=== PATIENT | female | born 1990 | race African-American/Black ===

== ENCOUNTER 2020-02-15 10:21 | Outpatient (CLI) | payer OTHER, SELFPAY ==
--- NOTE | ~2020-02-15 | US_ITS ---
EXAMINATION: US OB <= 14 weeks fetus DATE: 02/15/2020 11:12 INDICATION: First trimester dating, encounter for supervision of normal TECHNIQUE: Real-time pelvic transabdominal and transvaginal ultrasound was performed. COMPARISON: None. FINDINGS: The uterus measures 10.9 x 9.6 x 8.1 cm. There is an intrauterine gestational sac. A yolk sac is identified. heart motion is identified measuring 163 beats per minute (bpm) by M-mode Do ppler. The crown rump length measures 3.6 cm , which correlates with an estimated gestational a ge of 10 weeks and 4 day(s) (+/-) 7 day(s). The right ovary measures 3.3 x 2.2 x 2.5 cm. The left ovary measures 2.9 x 2.0 x 1.5 cm. There is nor mal vascular flow in the ovaries. There is no free fluid in the pelvis. IMPRESSION: 1. Live intrauterine with an estimated gestational age of 10 weeks and 4 day(s) (+/-) 7 day (s) and an estimated delivery date of 09/08/20. Reviewed, dictated and finalized at location B. IMPRESSION: 1. Live intrauterine with an estimated gestational age of 10 weeks an d 4 day(s) (+/-) 7 day(s) and an estimated delivery date of 09/08/20.
== END 2020-02-15 10:22 | disposition home or self-care (01) ==
PROVIDERS: PCP Thoracic Surgery (Cardiothoracic Vascular Surgery); Visit Provider Physician Assistant
DX: Z34.90 Encounter for supervision of normal pregnancy, unspecified, unspecified trimester (principal)
CPT/HCPCS: 76801

== ENCOUNTER 2020-06-26 13:59 | Outpatient (CLI) | payer OTHER, SELFPAY ==
--- NOTE | ~2020-06-26 | US_ITS ---
EXAMINATION: US OB follow up DATE: 06/26/2020 14:54 INDICATION: Routine care during third trimester TECHNIQUE: Real-time ultrasound of the pelvis was performed. The interpreting radiologist was not pre sent for the study. COMPARISON: 02/15/2020 FINDINGS: There is a single living fetus in vertex presentation. The placenta is anterior. card iac activity and movement are noted. heart rate is 149 beats per minute (bpm). The amniot ic fluid index is subjectively normal. The following biometric data were obtained: Biparietal diameter (BPD): 7.3 cm; head circumference (HC): 28.3 cm; abdominal circumference (AC): 24 .1 cm; femur length (FL): 5.6 cm. These measurements are concordant. Estimated weight is 1346 g +/- 201 g, which correlates with the 43rd percentile when 09/11/2020 is used as estimated date of delivery. As single measurements, these parameters are each equal to the following estimated gestational ages w ith ranges of +/- 2 standard deviations: BPD: 29 weeks 4 days +/- 2 weeks 1 days. HC: 31 weeks 1 days +/- 3 weeks 0 days. AC: 28 weeks 3 days +/- 2 weeks 1 days. FL: 29 weeks 4 days +/- 2 weeks 1 days. estimated gestational age based solely on measurements from this exam is 29 weeks 5 days +/- 2 weeks 1 days. IMPRESSION: 1. Single living fetus in vertex presentation. 2. Estimated weight is 1346 g +/- 201 g, which correlates with the 43rd percentile when 09/11/19 21 is used as estimated date of delivery. Reviewed, dictated and finalized at location A. C WINFOR[employer] DEVELOPER IMPRESSION: 1. Single living fetus in vertex presentation. 2. Estimated weight is 1346 g +/- 201 g, which correlates with the 43rd p ercentile when 09/11/2020 is used as estimated date of delivery.
== END 2020-06-26 14:00 | disposition home or self-care (01) ==
LOC: ANHIMG 14:04
PROVIDERS: PCP Thoracic Surgery (Cardiothoracic Vascular Surgery); Visit Provider Physician Assistant
DX: Z34.93 Encounter for supervision of normal pregnancy, unspecified, third trimester (principal); Z3A.29 29 weeks gestation of pregnancy
CPT/HCPCS: 76816

== ENCOUNTER 2020-08-03 16:00 | Observation (INO) | payer OTHER, SELFPAY ==
[2020-08-03] VITALS (12 sets, daily range): BP systolic 95–125; BP diastolic 38–71; PULSE 79–123
[2020-08-03] MEDS: TERBUTALINE SULFATE 1 MG/ML VIAL 0.25 MG SUB-Q (17:42)
--- NOTE | 2020-08-10 17:12 | PM.OBTRLD ---
OB - Triage/Final Diagnosis Visit Information Reason for evaluation: threatened labor
== END 2020-08-03 19:45 | disposition home or self-care (01) ==
PROVIDERS: Admitting Provider Obstetrics & Gynecology; PCP Thoracic Surgery (Cardiothoracic Vascular Surgery); Visit Provider Obstetrics & Gynecology
DX: O47.03 False labor before 37 completed weeks of gestation, third trimester (principal); Z3A.34 34 weeks gestation of pregnancy
CPT/HCPCS: 84112; 96372; G0378; G0379; J3105

== ENCOUNTER 2020-08-31 04:15 | Inpatient (IN) | payer OTHER, SELFPAY ==
[2020-08-31] VITALS (15 sets, daily range): BP systolic 103–143; BP diastolic 57–109; PULSE 67–174; RESP 17–18; TEMP 36.9–37.3; O2SAT 100; BMI 38.5
[2020-08-31] MEDS: AMPICILLIN 2 GM/NS 100 ML 2 GM/100 ML BAG IVPB (04:55)
--- NOTE | 2020-08-31 04:55 | PM.IMHP ---
H&P: HPI History of Present Illness Date/Time: 08/31/20 04:55 Chief Complaint: contractions Narrative: Aria Montaño is a 30 yo @ 38.6wks ([facility] 09/08/20) who presented to L&D in labor; found to be 7cm. She reports movement. No VB or LOF. She has had regular care with Dr. Rey. Her is complicated by: - GBS bacteruria in January 2020 - Occasional marijuana use - Anemia on anemia - Tobacco abuse; 07/23 ppd Review of Systems Constitutional: Constitutional: Denies chills and Denies fever(s) Eyes: Eyes: Denies change in vision Cardiovascular: Cardiovascular: Denies chest pain and Denies rapid heart rate Respiratory: Respiratory: Denies cough and Denies dyspnea Gastrointestinal: Gastrointestinal: Reports abdominal pain, Denies nausea and Denies vomiting Genitourinary: Genitourinary: Denies vaginal discharge Neurologic: Denies headache(s) Psychiatric: Psychiatric: Denies anxiety and Denies depression [facility] Past Medical History Medical History Anxiety Migraines Family History Family History Mother Hypertension Social History Social History Substance use: never Gender identity (if verbalized by the patient): Female Spiritual care concerns: No Meds Home Medications and Allergies Home Medications Medication Instructions Recorded Confirmed Type Vitamin Plus Low Iron 1 tablet DAILY 08/03/20 08/10/20 History aspirin 81 mg DAILY 08/03/20 08/10/20 History calcium carbonate-vitamin D3 1 tablet DAILY 08/03/20 08/10/20 History [Oysco 500/D] folic acid 1 mg DAILY 08/03/20 08/10/20 History multivitamin 1 tablet DAILY 08/03/20 08/10/20 History Allergies Allergy/AdvReac Type Severity Reaction Status Date / Time No Known Allergies Allergy Verified 08/03/20 17:42 Exam Const: General: cooperative, healthy appearing, comfortable and no acute distress Resp: Effort & Inspection: normal respiratory effort and able to speak in complete sentences Cardio: Rate: regular rate GI: GI Palp: Yes Soft to palpation : Other: FHT's: 140's/ mod dev/ + accels/ no decels - cat 1 TOCO: ctx's q5min Membranes: intact Cervix: 80/0 Presentation: cephalic Skin: General skin exam: normal color Neuro: General: patient oriented x3 Extrem: General: normal to inspection Psych: Appearance: grossly normal Affect: normal affect Attitude: cooperative Assessment and Plan Assessment and plan (1) : Qualifiers: Weeks of gestation: 38 weeks Qualified Code(s): Z3A.38 - 38 weeks gestation of Code(s): Z34.90 - Encounter for supervision of normal , unspecified, unspecified trimester Status: Acute (2) Active labor: Status: Acute (3) GBS (group B streptococcus) UTI complicating : Qualifiers: Trimester: first trimester Qualified Code(s): O23.41 - Unspecified infection of urinary tract in , first trimester; B95.1 - Streptococcus, group B, as the cause of diseases classified elsewhere Code(s): O23.40 - Unspecified infection of urinary tract in , unspecified trimester; B95.1 - Streptococcus, group B, as the cause of diseases classified elsewhere Status: Acute Additional Plan - Admit to L&D - Continuous monitoring; currently reassuring - Pt declines epidural - GBS positive; ampicillin started - Anticipate
[2020-08-31 05:07] LABS: Basophils Percent Auto 0.3 % (0.2-1.2); Eosinophils Percent Auto 0.3 % (0-4.4); Hematocrit 33.7 % (37.0-47.0); Immature Granulocyte Absolute 0.04 K/mm3 (0.00-0.031); Immature Granulocyte Percent A 0.6 % (0-0.5); Lymphocytes Percent Auto 20.1 % (18.3-44.2); Mean Corpuscular HGB Conc 32.6 g/dl (32-36); Mean Corpuscular Hemoglobin 27.6 pg (26-34); Mean Corpuscular Volume 84.7 fl (80-100); Mean Platelet Volume 10.4 fl (7.4-10.4); Monocytes Absolute Auto 0.7 K/mm3 (0.1-0.6); Monocytes Percent Auto 9.6 % (2.6-8.5); Neutrophils Absolute Auto 4.8 K/mm3 (1.3-6.7); Neutrophils Percent Auto 69.1 % (45.5-73.1); Platelet Count Result 237 k/mm3 (150-375); Red Blood Count 3.98 M/mm3 (4.2-5.4); Red Cell Distribution Width 14.9 % (11.5-14.5)
[2020-08-31] MEDS: OXYTOCIN 30 UNITS/NS 500 ML 30 UNITS/500 ML BAG 999 UNITS IV CONT (05:30)
--- NOTE | 2020-08-31 05:49 | WPDHPUPDATE1 ---
History and Physical Update Update Date/Time: 08/31/20 05:49 History and Physical has been reviewed, including an updated exam of the patient. There are NO changes in the patient's condition. Risks, benefits, and alternatives have been discussed and questions answered. Patient agrees to proceed with procedure.
--- NOTE | 2020-08-31 05:52 | PM.OBPRVD ---
OB - Delivery Note Procedure Delivery date: 08/31/20 Intrapartal events: Precipitous Labor < 3 hours Induction method: none Delivery augmentation: rupture of membranes Delivery monitor: external FHT and external uterine Route of delivery: Laceration Description: Perineal - 2nd Degree Delivery repair: vicryl Specimen: No Quantitative Blood Loss (ml): 250 Anesthesia type: Local Disposition: floor Narrative: Patient had strong desire to push and was found to be anterior lip. Amniotic sac was broken, clear fluid was noted. With the next two contractions and good maternal effort, she delivered the head over intact perineum. No nuchal was palpated. With the next push she easily delivered the shoulders and body, compound presentation with left hand up by neck. The infant had spontaneous cry and was immediately placed skin to skin. Delayed cord clamping was performed. The cord was then clamped and cut. A segment of the cord was collected for cord gases. The remaining cord blood was collected for typing. With gentle downward traction, the placenta delivered without issue. Pitocin was then started. Minimal bleeding was noted. The cervix, vagina, and perineum were examined and a 2nd degree perineal laceration was noted. Lidocaine was used for local anesthesia and the laceration was repaired using 2-0 Vicryl in the normal fashion. Slight bleeding was noted (cervix was present at the introitus) and the uterus was attempted to be reduced. Good hemostasis was noted. Sponge, lap, needle and instrument counts were correct at the end of the procedure. Patient and baby were bonding. Her bleeding was examined and noted to be heavier than normal with small clots. A bimanual massage was performed and a 2 inch piece of placenta was removed with clots. Good uterine tone and decreased bleeding were then noted. Cytotec 800mcg was placed rectally. Her bleeding will be closely monitored. QBL 271cc. [place] Baby Date of : 08/31/20 Time of : 05:26 Weeks of gestation at delivery: 38 gender: Male Weight (pounds): 7 Weight (ounces): 10 presentation: vertex position: Left Occiput Anterior Placenta delivery description: Expressed cord vessel description: 3 Vessels score one minute: 9 score five minutes: 9
[2020-08-31] MEDS: fentaNYL CITRATE INJ (*CRX) 100 MCG/2 ML VIAL IV PUSH (06:02)
[2020-08-31] MEDS: OXYTOCIN 30 UNITS/NS 500 ML 30 UNITS/500 ML BAG 125 UNITS IV CONT (06:03)
[2020-08-31] MEDS: miSOPROStol 200 MCG TABLET 1000 MCG (06:05)
--- NOTE | 2020-08-31 06:40 | LDADM ---
This patient, Aria Montaño, was admitted to Labor/Delivery/Recovery 103 on 08/31/20 at 04:15. Plans for labor, pain management and were discussed with patient. Patient/family oriented to hospital policies and general routines including ID bracelet, bed and alarms, visiting hours, pain management, procedures, bathroom and other care routines, personal items, smoking policy, room service/diet and guest tray routines, infant security routines, and visiting hours. Patient/Family are encouraged to report perceived risks to care and to ask questions if they do not understand what they are told or what they should do. See OBIX for further documentation.
[2020-08-31 07:11] LABS: Rapid Plasma Reagin Non-Reactive (NonReactive)
[2020-08-31] MEDS: ACETAMINOPHEN 325 MG TABLET 650 MG PO (07:19)
[2020-08-31] MEDS: BENZOCAINE 20% AER SPR (*SP) 56 GM CAN 1 SPRAY TOPICAL (07:19)
[2020-08-31] MEDS: WITCH HAZEL 40 PADS 1 PAD TOPICAL (07:19)
[2020-08-31] MEDS: LACTATED RINGERS 1,000 ML 125 ML IV CONT (07:42)
--- NOTE | 2020-08-31 08:26 | OBPPTRN ---
Patient transferred to post room # 290 via wheelchair. Support person present. Oriented to unit, room, information board, rooming in, admission packet and security measures. Patient verbalizes understanding.
--- NOTE | 2020-08-31 10:15 | PC.NURSE ---
Consulted with patient, reviewed feeding cues, frequencies, duration of feedings, feeding elimination flow sheet, and signs of adequate intake. Demonstrated stimulation techniques to wake for feeding. Assisted with to breast. Reviewed positioning/alignment, holding breast and asymmetrical latch on. was rooting and attempting to latch correctly. After 1-2 minutes of latching on and off breast mom states she wants to bottle feed . Encouraged mom to continue to get infant to latch but mom states she wants to pump and feed. Mother voiced understanding of information shared. Mom declined wanting to assist infant to breast for next feeding. Breast pump provided due to mom's choice tp pump and feed. Instructions given on breast pump care and usage, pumping schedule, nipple care, and collection and storage of breast milk. Encouraged [id number], breast massage and manual expression to stimulate supply. Assessed patient for correct flange size, placement and draw. Patient verbalizes and demonstrates understanding of instructions.
[2020-08-31] MEDS: IBUPROFEN 600 MG TABLET PO ×2 (15:42→22:31)
[2020-09-01 06:15] LABS: Hematocrit 29.6 % (37.0-47.0); Hemoglobin 9.8 g/dL (12.0-15.0)
[2020-09-01] MEDS: WITCH HAZEL 40 PADS 1 PAD TOPICAL (07:32)
[2020-09-01] MEDS: BENZOCAINE 20% AER SPR (*SP) 56 GM CAN 1 SPRAY TOPICAL (07:32)
[2020-09-01] MEDS: IBUPROFEN 600 MG TABLET PO ×2 (07:33→16:59)
[2020-09-01] MEDS: MULTIVIT/MIN/PREN/FOL AC/IRON TABLET 1 TAB PO (07:33)
[2020-09-01] MEDS: DOCUSATE SODIUM 100 MG CAPSULE PO ×2 (07:33→16:59)
[2020-09-01] MEDS: POLYSACCHARIDE IRON COMPLEX 150 MG CAPSULE PO ×2 (07:34→16:59)
[2020-09-01 07:43] VITALS: BP 127/75; PULSE 75; RESP 18; TEMP 36.3
--- NOTE | 2020-09-01 08:56 | P.PNOB_ITS ---
OB - PN: Subj Subjective Date/time seen: 09/01/20 08:56 Patient comments: no complaints, pain well controlled, tolerating diet and flatus present [place] baby status: doing well [place] feeding status: breast and bottle feeding OB - PN: Obj Data Labs CBC & Chem 7: 09/01/20 05:56 Labs: Laboratory Results - last 24 hr 09/01/20 05:56 Hgb 9.8 L Hct 29.6 L OB - PN A/P Assessment and Plan (1) Term delivered: Code(s): O80 - Encounter for full-term uncomplicated delivery Status: Acute (2) GBS (group B streptococcus) UTI complicating : Qualifiers: Trimester: first trimester Qualified Code(s): O23.41 - Unspecified infection of urinary tract in , first trimester; B95.1 - Streptococcus, group B, as the cause of diseases classified elsewhere Code(s): O23.40 - Unspecified infection of urinary tract in , unspecified trimester; B95.1 - Streptococcus, group B, as the cause of diseases classified elsewhere Status: Acute Plan day: 1 Plan: routine care, discharge home and follow up 6 weeks Time Spent With Patient Time: Total time spent is greater than 50% in coordination of care (as documented) at patient's floor/unit and/or counseling patient: Time with patient: less than 15 minutes Review of Systems Review of Systems: All systems reviewed & are unremarkable except as noted in HPI and below Exam Const: General: cooperative, healthy appearing, comfortable, no acute distress, well developed, alert, awake and Physically active HENMT: Head: normal to inspection Eyes: General: appearance normal, both eyes and all related structures Neck: Neck: normal visual inspection Chest: Chest palpation & inspection: normal inspection of the chest Resp: Effort & Inspection: normal respiratory effort Cardio: Rate: regular rate Rhythm: regular rhythm GI: Inspection: normal to inspection : External Female Exam: normal external appearance Back/Spine/Pelvis: Back: no CVA tenderness Skin: General skin exam: normal color Neuro: General: patient oriented x3, gait normal, tone normal, moves all extr emities and Normal light touch and pain sensation Extrem: General: normal to inspection, full ROM and no calf tenderness Psych: Appearance: grossly normal Mental Status: mental status grossly normal Speech and movement: Normal speech and movement present Affect: normal affect Attitude: cooperative Thought process: Normal thought process present Thought content: Yes Normal thought content present Insight: Good insight present (Psych) Judgement: Good judgement present (Psych)
--- NOTE | 2020-09-01 09:00 | PM.OBDSVD ---
DS: Admitting Diagnosis Admitting Diagnosis Admitting Diagnosis: Term Spontaneous onset of labor GBS carrier DS: Discharge Diagnosis Discharge Diagnosis (1) Term delivered: Code(s): O80 - Encounter for full-term uncomplicated delivery Status: Acute (2) GBS (group B streptococcus) UTI complicating : Qualifiers: Trimester: first trimester Qualified Code(s): O23.41 - Unspecified infection of urinary tract in , first trimester; B95.1 - Streptococcus, group B, as the cause of diseases classified elsewhere Code(s): O23.40 - Unspecified infection of urinary tract in , unspecified trimester; B95.1 - Streptococcus, group B, as the cause of diseases classified elsewhere Status: Acute OB - DS: Summary Hospital Course Time spent discussing smoking cessation with patient: 3 to 10 minutes OB Procedures : Ultrasound OB Procedures Intrapartum: Spontaneous Vag Delivery OB Procedures: : None Peripartum Data Infant Delivery Method: Natural Vaginal Laceration Description: Perineal - 1st Degree complications: none [place] 1: Gender: Male Disposition of : home Status at Discharge Functional status at discharge: independent ambulation Overall status at discharge: patient is back to baseline Time Spent with Patient Time attestation: Total time spent providing and/or coordinating discharge services: Time spent: Less than 30 minutes Exam Const: General: cooperative, healthy appearing, comfortable, no acute distress, well developed, alert, awake and Physically active Nutritional Appearance: average body habitus and well nourished Orientation/consciousness: oriented to person Limitations: no limitations HENMT: Head: normal to inspection Eyes: General: appearance normal, both eyes and all related structures Neck: Neck: normal visual inspection Chest: Chest palpation & inspection: normal inspection of the chest Resp: Effort & Inspection: normal respiratory effort Cardio: Rate: regular rate Rhythm: regular rhythm GI: Inspection: normal to inspection : External Female Exam: normal external appearance Back/Spine/Pelvis: Back: no CVA tenderness Skin: General skin exam: normal color Neuro: General: patient oriented x3, gait normal, tone normal, moves all extremities and Normal light touch and pain sensation Extrem: General: normal to inspection, full ROM and no calf tenderness Psych: Appearance: grossly normal Mental Status: mental status grossly normal Speech and movement: Normal speech and movement present Affect: normal affect Attitude: cooperative Thought process: Normal thought process present Thought content: Yes Normal thought content present Insight: Good insight present (Psych) Judgement: Good judgement present (Psych) DS: Data Data Completed and Pending Pending studies at discharge: Pending at discharge 08/31/20 05:30 Surgical [PTH] Routine Labs on day of discharge: Labs from last 24 hours 09/01/20 05:56 Hgb 9.8 L Hct 29.6 L Discharge Plan Discharge Attending physician on discharge: Rony Rey Discharging Clinician: Rony Rey Anticipated Discharge Date/Time: 09/02/20 08:58 Patient Disposition: Home, Self-Care Activity: may shower, unlimited and may drive after 2 weeks Diet: as tolerated and regular Wound Care Instructions: follow printed instructions Discharge Instructions: Routine Patient Instructions: Antibiotic Form Stand Alone Forms: General Discharge Information Follow-up/Referrals: Rony Rey MD [Physician] - 3 Weeks Discharge Medications: New ibuprofen 600 mg Tablet 600 mg PO Q6H Qty: 90 RF: 2 Continued multivitamin Tablet 1 tablet DAILY RF: 0 aspirin 81 mg tablet,delayed release (DR/EC) 81 mg DAILY RF: 0 folic acid 1 mg tablet 1 mg DAILY RF: 0 calcium c
--- NOTE | 2020-09-01 16:00 | PC.NURSE ---
Patient was given the opportunity to view the discharge video Mother & Baby Care, The First Two Weeks and to ask questions. Patient declined viewing the video and has been given the mother/baby guide for home reference.
[2020-09-01 19:15] VITALS: BP 131/80; PULSE 85; RESP 17; TEMP 36.8
[2020-09-02] MEDS: IBUPROFEN 600 MG TABLET PO ×2 (01:26→08:10)
[2020-09-02 08:00] VITALS: BP 129/79; PULSE 82; RESP 16; TEMP 36.5
[2020-09-02] MEDS: POLYSACCHARIDE IRON COMPLEX 150 MG CAPSULE PO (08:10)
[2020-09-02] MEDS: DOCUSATE SODIUM 100 MG CAPSULE PO (08:10)
[2020-09-02] MEDS: WITCH HAZEL 40 PADS 1 PAD TOPICAL (08:10)
[2020-09-02] MEDS: BENZOCAINE 20% AER SPR (*SP) 56 GM CAN 1 SPRAY TOPICAL (08:10)
[2020-09-02] MEDS: MULTIVIT/MIN/PREN/FOL AC/IRON TABLET 1 TAB PO (08:10)
[2020-09-02] MEDS: TETANUS,DIPHTHERIA,AC PERTUSSIS ADULT (0.5 ML) BOOSTRIX IM (10:10)
--- NOTE | 2020-09-02 11:47 | PC.NURSE ---
Infant care and self care discharge instructions given including follow up visit date and time. Pt. verbalized understanding. No questions or concerns voiced. Very pleasant and cooperative. FOB at side.
== END 2020-09-02 10:35 | disposition home or self-care (01) | DRG 560 ==
LOC: ANHLDR 04:42 → ANHOB2 08:30
PROVIDERS: Admitting Provider Obstetrics & Gynecology; PCP Thoracic Surgery (Cardiothoracic Vascular Surgery); Visit Provider Obstetrics & Gynecology
DX: O99.824 Streptococcus B carrier state complicating childbirth (principal); O62.3 Precipitate labor; O76 Abnormality in fetal heart rate and rhythm complicating labor and delivery; O70.1 Second degree perineal laceration during delivery; O32.6XX0 Maternal care for compound presentation, not applicable or unspecified; Z3A.38 38 weeks gestation of pregnancy; Z37.0 Single live birth; Z23 Encounter for immunization
CPT/HCPCS: 36415; 85014; 85018; 85025; 86592; 86850; 86900; 86901; 88307; 90471; 90653; 90715; A9270; G0008; J0290; J2590; J3010; J7120

== ENCOUNTER 2023-07-14 09:47 | Emergency (ER) | payer OTHER, SELFPAY ==
[2023-07-14 10:28] VITALS: BP 127/74; PULSE 75; RESP 16; TEMP 36.6; O2SAT 100
== END 2023-07-14 13:20 | disposition left against medical advice (07) ==
LOC: ANHED 13:17
PROVIDERS: PCP Thoracic Surgery (Cardiothoracic Vascular Surgery)
DX: Z53.21 Procedure and treatment not carried out due to patient leaving prior to being seen by health care provider (principal)
CPT/HCPCS: 99199

== ENCOUNTER 2023-07-15 19:05 | Emergency (ER) | payer OTHER, SELFPAY ==
--- NOTE | ~2023-07-15 | US_ITS ---
EXAMINATION: US pelvic complete w TV DATE: 07/15/2023 21:17 INDICATION: preg, bleeding, LLQ pain TECHNIQUE: Multiple transabdominal and endovaginal sonographic images of the pelvis were obtained. COMPARISON: None. FINDINGS: Uterus: 8.6 x 4.6 x 4.9 cm. Endometrial complex measures 7 mm. Right Ovary: 4.0 x 1.8 x 2.2 cm. Vascular flow is present. There is minimal free fluid in the right a dnexa. Left Ovary: 5.2 x 1.4 x 2.2 cm. Vascular flow is present. 2.1 cm simple paraovarian cyst. 2.3 cm mini june complicated cystic ovarian structure, with thin dependent reticulations and minimal internal ec hogenicity. There is small volume free fluid in the pelvis. IMPRESSION: No intrauterine gestational sac visualized. Findings represent of unknown location. Diffe rential diagnosis includes early normal, failed early, or ectopic . Recommend follow-up ser ial beta-hCG values. Ultrasound follow-up should be considered as clinically warranted. Simple right paraovarian cyst. 2.3 cm right ovarian cyst, likely resolving hemorrhagic cyst. [facility] Reviewed, dictated and finalized at location K. DRAFTING MACHINE OPERATOR IMPRESSION: No intrauterine gestational sac visualized. Findings represent of un known location. Differential diagnosis includes early normal, failed early, or ectopic . Recommend follow-up serial beta-hCG values. Ultrasound fo llow-up should be considered as clinically warranted. Simple right paraovarian cyst. 2.3 cm right ovarian cyst, likely resolving hemorrhagic cyst. Recommend attenti on in follow-up examinations.
[2023-07-15 19:31] VITALS: BP 153/80; PULSE 68; RESP 16; TEMP 37.2; O2SAT 100
[2023-07-15 19:51] LABS: Basophils Percent Auto 0.5 % (0.2-1.2); Eosinophils Percent Auto 0.6 % (0-4.4); Hematocrit 38.3 % (37.0-47.0); Hemoglobin 12.2 g/dL (12.0-15.0); Immature Granulocyte Absolute 0.01 K/mm3 (0.00-0.031); Immature Granulocyte Percent A 0.2 % (0-0.5); Lymphocytes Absolute Auto 2.26 K/mm3 (0.9-3.2); Lymphocytes Percent Auto 34.5 % (18.3-44.2); Mean Corpuscular HGB Conc 31.9 g/dl (32-36); Mean Corpuscular Hemoglobin 27.2 pg (26-34); Mean Corpuscular Volume 85.3 fl (80-100); Mean Platelet Volume 9.7 fl (7.4-10.4); Monocytes Absolute Auto 0.6 K/mm3 (0.1-0.6); Monocytes Percent Auto 9.2 % (2.6-8.5); Neutrophils Absolute Auto 3.6 K/mm3 (1.3-6.7); Platelet Count Result 324 k/mm3 (150-375); Red Blood Count 4.49 M/mm3 (4.2-5.4); Red Cell Distribution Width 15.3 % (11.5-14.5); White Blood Count 6.6 K/mm3 (4.5-10.0)
[2023-07-15 20:22] LABS: Beta HCG Quantitative 10.87 mIU/ML
[2023-07-16 00:02] VITALS: BP 98/50; PULSE 85; RESP 12; O2SAT 96
--- NOTE | 2023-07-16 01:44 | ED.PREGNANCY ---
HPI - General Chief complaint: Vaginal Bleeding Stated complaint: preg, vag bleed Time Seen by Provider: 07/16/23 00:13 Source: patient Mode of arrival: ambulatory Limitations: no limitations History of Present Illness HPI Narrative: Patient is a 33-year-old female who presents to the ED with report of vaginal bleeding. Patient is and reports she is currently . Last normal menstrual cycle was throughout the last week of May, ending June 19. Patient reports she had several positive tests last week. She then began bleeding on Thursday. Bleeding has persisted since then. She notes bleeding has been fairly heavy, with clots noted. She reports some tenderness throughout her left lower abdomen. Reports intermittent lightheadedness, denies nausea, vomiting, fevers, dysuria, hematuria. Related Data Home Medications Medication Instructions Recorded Confirmed aspirin 81 mg tablet,delayed 81 mg DAILY 08/03/20 08/31/20 release calcium carbonate 500 mg-vitamin 1 tablet DAILY 08/03/20 08/31/20 D3 5 mcg (200 unit) tablet (Oysco 500/D) folic acid 1 mg tablet 1 mg DAILY 08/03/20 08/31/20 multivitamin 1 tablet DAILY 08/03/20 08/31/20 vitamin with calcium 1 tablet DAILY 08/03/20 08/31/20 no.72-iron 27 mg-folic acid 1 mg tablet ( Vitamins Plus Low Iron) Allergies Allergy/AdvReac Type Severity Reaction Status Date / Time No Known Allergies Allergy Verified 07/15/23 19:30 Review of Systems Review of Systems: CONSTITUTIONAL: Denies fever, chills, or sweats. GASTROINTESTINAL: See HPI GENITOURINARY: See HPI MUSCULOSKELETAL: Denies back pain, extremity pain, myalgia. NEUROLOGIC: See HPI All systems reviewed & are unremarkable except as noted in HPI and below PMFSH Past Medical History Medical History Anxiety Migraines Family History Family History Mother Hypertension Social History Social History Smoking status: Former smoker Substance use: never Gender identity (if verbalized by the patient): Female Spiritual care concerns: No Exam Narrative: GENERAL: Well appearing, obese with BMI of 37.2, non-toxic, in no acute distress. HEAD: Normocephalic, atraumatic. RESPIRATORY: Airway patent, respirations nonlabored. CARDIOVASCULAR: Regular rate and rhythm without murmurs, rubs, or gallops. ABDOMINAL: Soft, mild tenderness in left lower abdomen, no rebound. Normoactive BS. PELVIC: Normal external genitalia. Mild amount of dark red vaginal bleeding and vaginal vault. Difficult to fully visualize cervix as deep and tilted. No significant clots noted. No significant CMT. No evidence of hemorrhage or pooling of fluid. MUSCULOSKELETAL: Moves all extremities. No gross deformities. SKIN: Warm, dry, normal color. NEURO: A&O X3. Speech clear. Cranial nerves II-XII grossly intact. Steady gait. No ataxic movements. PSYCHIATRIC: Appropriate mood and affect. Normal interaction. Course Vital Signs Vital signs: Vital Signs Temperature 98.9 F 07/15/23 19:31 Pulse Rate 68 07/15/23 19:31 Respiratory Rate 16 07/15/23 19:31 Blood Pressure 153/80 H 07/15/23 19:31 Pulse Oximetry 100 07/15/23 19:31 Temperature 98.9 F 07/15/23 19:31 Pulse Rate 89 07/16/23 02:25 Respiratory Rate 19 07/16/23 02:25 Blood Pressure 130/87 07/16/23 02:25 Pulse Oximetry 97 07/16/23 02:25 Oxygen Delivery Room Air 07/16/23 00:02 MDM - OB/Uterine Contractions MDM Narrative Medical decision making narrative: Patient presented to ED with several day history of vaginal bleeding, positive tests at home. This makes patient . Reporting some left lower abdominal pain. Beta quant in ED only 10.87. CBC with stable H&H. Patient's
[2023-07-16 02:25] VITALS: BP 130/87; PULSE 89; RESP 19; O2SAT 97
== END 2023-07-16 02:25 | disposition home or self-care (01) ==
PROVIDERS: Emergency Medicine; Emergency Provider Physician Assistant; PCP Internal Medicine Gastroenterology
DX: O20.0 Threatened abortion (principal); O34.80 Maternal care for other abnormalities of pelvic organs, unspecified trimester; N83.201 Unspecified ovarian cyst, right side
CPT/HCPCS: 36415; 76830; 76856; 84702; 85025; 99284

== ENCOUNTER 2023-07-17 07:45 | Outpatient (CLI) | payer OTHER, SELFPAY ==
[2023-07-17 08:35] LABS: Beta HCG Quantitative 8.73 mIU/ML
== END 2023-07-17 07:46 | disposition home or self-care (01) ==
LOC: ANHLAB 07:46
PROVIDERS: PCP Internal Medicine Gastroenterology; Visit Provider Physician Assistant
DX: O20.0 Threatened abortion (principal); Z3A.00 Weeks of gestation of pregnancy not specified
CPT/HCPCS: 36415; 84702

== ENCOUNTER 2023-07-21 14:23 | Outpatient (CLI) | payer OTHER, SELFPAY ==
[2023-07-21 15:23] LABS: Beta HCG Quantitative 2.84 mIU/ML
== END 2023-07-21 14:24 | disposition home or self-care (01) ==
LOC: ANHLAB 14:27
PROVIDERS: PCP Internal Medicine Gastroenterology; Visit Provider Obstetrics & Gynecology
DX: R20.0 Anesthesia of skin (principal)
CPT/HCPCS: 36415; 84702

== ENCOUNTER 2024-04-12 13:47 | Emergency (ER) | payer OTHER, SELFPAY ==
[2024-04-12] VITALS (26 sets, daily range): BP systolic 127–159; BP diastolic 77–134; PULSE 60–91; RESP 9–38; TEMP 36.5–36.6; O2SAT 98–100
--- NOTE | ~2024-04-12 | XR_ITS ---
EXAMINATION: XR chest 2V DATE: 04/12/2024 15:01 INDICATION: Shortness of breath and chest tightness TECHNIQUE: PA and lateral views of the chest were obtained. COMPARISON: None FINDINGS: Calcified right lower lobe nodule projecting posterior to the hilum consistent with old granulomatous disease. No other airspace opacities, pulmonary edema, pleural effusion or pneumothorax. The cardiom ediastinal silhouette is normal. Cholecystectomy clips in right upper quadrant. IMPRESSION: 1. No acute cardiopulmonary disease. Reviewed, dictated and finalized at location A.
--- NOTE | 2024-04-12 14:00 | ECG_ITS ---
Test Date: 2024-04-12 14:02:44 Measurements Intervals [place] Rate: 58 P: 11 DE: 162 QRS: 39 QRSD: 93 T: 42 QT: 422 QTc: 415 Interpretive Statements SINUS BRADYCARDIA BASELINE ARTIFACT- I, II, III, AVR, AVL, AVF, V1 BORDERLINE ECG No previous ECG available for comparison Electronically Signed On 04-12-2024 14:18:17 CDT by Fabricio Farah D.O.
[2024-04-12 14:27] LABS: Basophils Percent Auto 0.4 % (0.2-1.2); Eosinophils Percent Auto 0.2 % (0-4.4); Hemoglobin 13.5 g/dL (12.0-15.0); Immature Granulocyte Absolute 0.01 K/mm3 (0.00-0.031); Immature Granulocyte Percent A 0.2 % (0-0.5); Lymphocytes Absolute Auto 1.79 K/mm3 (0.9-3.2); Lymphocytes Percent Auto 32.4 % (18.3-44.2); Mean Corpuscular HGB Conc 32.9 g/dl (32-36); Mean Corpuscular Hemoglobin 27.7 pg (26-34); Mean Platelet Volume 9.4 fl (7.4-10.4); Monocytes Absolute Auto 0.5 K/mm3 (0.1-0.6); Monocytes Percent Auto 8.9 % (2.6-8.5); Neutrophils Absolute Auto 3.2 K/mm3 (1.3-6.7); Neutrophils Percent Auto 57.9 % (45.5-73.1); Platelet Count Result 336 k/mm3 (150-375); Red Blood Count 4.88 M/mm3 (4.2-5.4); Red Cell Distribution Width 15.6 % (11.5-14.5); White Blood Count 5.5 K/mm3 (4.5-10.0)
[2024-04-12 14:38] LABS: Alanine Aminotransferase 19 U/L (6-35); Albumin Level 4.6 g/dL (3.5-5.1); Alkaline Phosphatase 67 U/L (38-126); Anion Gap 12 mmol/L (4-12); Aspartate Amino Transferase 24 U/L (14-36); Bilirubin,Total 0.5 mg/dL (0.2-1.3); Blood Urea Nitrogen 10 mg/dL (7-17); Calcium 9.3 mg/dL (8.4-10.2); Carbon Dioxide 21 mmol/L (22-30); Chloride 103 mmol/L (98-107); Estimated CRCL calculation 102 ml/min; Estimated Glomerular Filt Rate > 60; Glucose 96 mg/dL (65-110); Sodium 136 mmol/L (137-145)
[2024-04-12 16:14] LABS: Troponin I < 0.012 ng/mL (0.000-0.034)
[2024-04-12 16:35] LABS: Influenza A QL RT-PCR Negative (Negative); Influenza B QL RT-PCR Negative (Negative); RSV RNA, RT-PCR Negative (Negative); SARS-CoV-2 RNA PCR Negative (Negative)
[2024-04-12] MEDS: MAG HYDROX/AL HYDROX/SIMETH 30 ML UDC PO (16:35)
[2024-04-12] MEDS: FAMOTIDINE 20 MG/2 ML VIAL IV PUSH (16:35)
[2024-04-12 16:46] LABS: BEDSIDEPREGUCG Negative (Negative)
--- NOTE | 2024-04-12 19:29 | ED.SOB ---
HPI - SOB/Dyspnea General Chief Complaint: Shortness of Breath/Dyspnea Stated Complaint: sob Time Seen by Provider: 04/12/24 15:47 History of Present Illness HPI Narrative: 34-year-old female with a past medical history of hypertension presenting to the emergency department with dyspnea for last 3 days associated with chest discomfort more so on the right side of her chest. She states that associated with food and sometimes she feels like she occasion gets choking episodes and difficulty swallowing. Rates the pain 810 but does not radiate anywhere into her chest, abdomen or back. No present nauseousness or chest discomfort. She states she was driving earlier this morning and noticed some chest discomfort and shortness of breath prompting her to seek ER evaluation. She is not dyspnea, conversational full sentences, not in any distress in triage. No new medication changes. Was otherwise in her normal state of health. Related Data Home Medications Medication Instructions Recorded Confirmed aspirin 81 mg tablet,delayed 81 mg DAILY 08/03/20 08/31/20 release calcium carbonate 500 mg-vitamin 1 tablet DAILY 08/03/20 08/31/20 D3 5 mcg (200 unit) tablet (Oysco 500/D) folic acid 1 mg tablet 1 mg DAILY 08/03/20 08/31/20 multivitamin 1 tablet DAILY 08/03/20 08/31/20 vitamin with calcium 1 tablet DAILY 08/03/20 08/31/20 no.72-iron 27 mg-folic acid 1 mg tablet ( Vitamins Plus Low Iron) Allergies Allergy/AdvReac Type Severity Reaction Status Date / Time No Known Allergies Allergy Verified 04/12/24 16:42 Review of Systems Review of Systems: As reviewed above in HPI PMFSH Past Medical History Medical History Anxiety Migraines Family History Family History Mother Hypertension Social History Social History Smoking status: Former smoker Substance use: never Gender identity (if verbalized by the patient): Female Spiritual care concerns: No Exam Narrative: GENERAL: [Well-appearing, well-nourished, and in no acute distress.] HEAD: [Normocephalic, atraumatic.] EYES: [PERRLA and EOMI.] ENT: Nares clear, no rhinorrhea or epistaxis. Mucous membranes moist. NECK: Supple. CHEST: [Clear to auscultation. No respiratory distress.] HEART: [Regular rate and rhythm]. No murmur heard. [Normal peripheral pulses.] ABDOMEN: [Soft, nondistended], [nontender], [No rigidity or guarding] EXTREMITIES: Normal range of motion. [No edema.] SKIN: Warm, dry, no rash. NEURO: [No focal deficits]. Alert and oriented [x3.] PSYCH: [Normal mood and affect.] Course Vital Signs Vital signs: Vital Signs Temperature 36.5 C 04/12/24 13:58 Pulse Rate 77 04/12/24 13:58 Respiratory Rate 18 04/12/24 13:58 Blood Pressure 139/110 H 04/12/24 13:58 Pulse Oximetry 100 04/12/24 13:58 Oxygen Delivery Room Air 04/12/24 13:58 Temperature 36.5 C 04/12/24 13:58 Pulse Rate 70 04/12/24 17:50 Respiratory Rate 19 04/12/24 17:50 Blood Pressure 155/79 H 04/12/24 17:50 Pulse Oximetry 100 04/12/24 17:50 Oxygen Delivery Room Air 04/12/24 16:36 MDM - SOB/Dyspnea MDM Narrative Medical decision making narrative: 34-year-old female presenting for atypical chest discomfort and dyspnea symptoms. Symptoms have been going on for last 3 days intermittent in nature and associated with food. Not associated with any exertion. No respiratory distress noted. Was otherwise in her normal state of health. No recent illnesses or trauma. Able to talk in full sentences, swallowing appropriately with water at bedside. Vital signs show she is afebrile, saturating well on room air without any tachypnea, tachycardia or blood pressure concerns aside from stable hypertension. Cardiovascular assessment is lucy
== END 2024-04-12 20:19 | disposition home or self-care (01) ==
PROVIDERS: Emergency Medicine; Physician Assistant; Emergency Provider Student in an Organized Health Care Education/Training Program; PCP Internal Medicine Gastroenterology
DX: R07.9 Chest pain, unspecified (principal); R11.0 Nausea; Z20.822 Contact with and (suspected) exposure to COVID-19; F41.9 Anxiety disorder, unspecified; R00.1 Bradycardia, unspecified
CPT/HCPCS: 36415; 71046; 80053; 81025; 84484; 85025; 87637; 93005; 96374; 99284; A9270

== ENCOUNTER 2024-10-27 19:16 | Emergency (ER) | payer SELFPAY ==
--- NOTE | ~2024-10-27 | US_ITS ---
FIRST TRIMESTER ULTRASOUND 10/27/2024 23:00 CDT Ordering provider: Uma Wang PA-C History: . abdominal pain, 5 weeks , vaginal bleeding . Comparison: None. FINDINGS: INTRAUTERINE GESTATIONAL SAC: Possibly seen measuring 0.84 cm equal 5 weeks and 4 days. YOLK SAC: Not seen. POLE: Not seen. GESTATIONAL AGE BY TODAY'S US: 5 weeks and 4 days UTERUS: The uterus measures 9.3x 5.4x 7.2 cm. in length which is within normal limits. No myometrial masses. FREE FLUID: None. OVARIES: Normal in size with the right measuring 3.2x 2.1x 1.4 centimeters and the left measuring 4.1 x 1.6x 1.7 cm Doppler flow is demonstrated within both ovaries. Corpus luteum cyst is seen in the lef t ovary. ADNEXAL MASSES: None. IMPRESSION: intrauterine gestational sac of 5 weeks and 4 days. Follow-up advised. Reviewed, dictated and finalized at location A.
--- OUTSIDE RECORDS SUMMARY | 2024-10-27 19:19 | XMS_ITS | Data Portability ---
Author Organization [facility] [place] Address [address] [place] [address] Care Team Providers Care Dielectric Tester Name Role Phone HAYDE BROWN Primary Care Provider [phone] Assessment No assessment recorded. Plan of Treatment Reminders Order Date Submit Date Provider Last Modified By Organization Details Last Modified Time Details Appointments None record ed. Lab None record ed. Referral None record ed. Procedures None record ed. Surgeries None record ed. Imaging None record ed. Medication Orders None record ed. Patient TargetsNo targets recorded. Patient InstructionsNo instructions recorded. Reason for Referral None Reported. Results Created Date Observation Date Name Description Value Unit Range Abnormal Flag Note LastModifiedBy Organization Detail LastModifiedTime Result Notes None recorded. Procedures Surgical History Date Name Laterality Status Provider Name and Address Organization Details Recorded Time 07/20/19 21 Cholecystectomy completed Merced Girard [facility] 08/04/2023 11:52:16 Imaging Results None recorded. Procedure Notes None recorded. Medical Equipment None Reported. Allergies No known drug allergies Medications Name Sig Start Date Stop Date Status Note LastModified by Organization Details LastModified Time sucralfate 1 gram tablet TAKE 2 TABLETS BY MOUTH TWICE DAILY active Not Available Not Available No t Available omeprazole 40 mg capsule,callie yed release TAKE 1 CAPSULE BY MOUTH EVERY DAY BEFORE A MEAL active Not Available Not Available No t Available omeprazole 20 mg capsule,callie yed release TAKE 1 CAPSULE BY MOUTH EVERY DAY BEFORE A MEAL active Not Available Not Available No t Available ergocalcifer ol (vitamin D2) 1,250 mcg (50,000 unit) capsule TAKE 1 CAPSULE BY MOUTH EVERY WEEK active Not Available Not Available No t Available ibuprofen 600 mg tablet TAKE 1 TABLET BY MOUTH THREE TIMES DAILY WITH MEALS 08/04 completed Not Available Not Available Not Available labetalol 100 mg tablet TAKE 1 TABLET BY MOUTH TWICE DAILY active Not Available Not Available No t Available labetalol 08/04 completed Not Available Not Available Not Available 12 Hour Nasal Relief [place] active Not Available Not Available Not Available Horizon Nasal Cpap System active Not Available Not Available Not Available FIRST-Omepra zole 2 mg/mL oral suspension active Not Available Not Available N ot Available Vitals Date Recorded Body height Body mass index (BMI) Body weight Systolic blood pressure Diastolic blood pressure Provider Name and Address Organization Details Last Updated DateTime 08/04/2023 172.72 cm 40.1 kg/m2 771331.3 9 g 117 mm[Hg] 81 mm[Hg] Merced Girard [facility] 11:41:38 Social History Question Answer Notes LastModified by Organizat ion Details LastModified Time Tobacco Smoking Status Never Smoker Merced Girard [facility] 08/04/2023 11:47:56 What Is Your Level Of Alcohol Consumption? None Information not available 08/04/2023 Are You Blind Or Do You Have Difficulty Seeing? No Information n ot available 08/04/2023 What Is Your Level Of Caffeine Consumption? Occasional Information not available 08/04/2023 How Much Tobacco Do You Chew? None Information not available 08/04/2023 In The 14 Days Before Symptom Onset, Have You Had Close Contact With A Laboratory-confirm ed COVID-19 While That Case Was Ill? No Information n ot available 08/04/2023 In The 14 Days Before Symptom Onset, Have You Had Close Contact With A Person Who Is Under Investigation For COVID-19 While That Person Was Ill? No Information not available 08/04/2023 Have You Been To An Area Known To Be High Risk For COVID-19? No Information not available 08/04/2023 Are You Deaf Or Do You Have Serious Difficulty Hearing? No Information not available 08/04/2023 What Type Of Diet Are You Following? REGULAR Information n ot available 08/04/2023 What Is The Highest Grade Or Level Of School You Have Completed Or The Highest Degree You Have Received? 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 No Information not available 08/04/2023 Do You Use Protection During Sex? Always Information not available 08/04/2023 Do You Use Your Seat Belt Or Car Seat Routinely? Yes Information not available 08/04/2023 Do You Have Smoke And Carbon Monoxide Detectors In Your Home? Yes Information not available 08/04/2023 How Much Tobacco Do You Smoke? No Information not available 08/04/2023 Do You Feel Stressed (tense, Restless, Nervous, Or Anxious, Or Unable To Sleep At Night)? [id number] Information not available 08/04/2023 Do You Use Any Illicit Or Recreational Drugs? No Information not available 08/04/2023 Do You Use Sunscreen Routinely? No Information not available 08/04/2023 Have You Used IV Drugs? No Information not available 08/04/2023 Sex: Unknown Functional Status Question Answer Note LastModified by Organization D etails LastModified Time What is your exercise level? Moderate Information not available 08/04/2023 Mental Status None recorded. Family History Relationship Description Onset Age of this Age Resolved Age Notes LastModified by Organization Details LastModified Time Mother Hypertensive disorder Not available 2023 11:29:29 Daughter Hypertensive disorder Not available 2023 11:29:29 Medical History Condition Response Anxiety Disorder Y Other Y Acid Reflux (GERD) Y Thyroid Problems Y Depression/ depression Y Gynecological History Statement/Question Response Abnormal Pap N STIs/STDs N Was last menstrual period normal Y Duration of Flow (days) 5 Current Control Method None Frequency of Cycle (Q days) 7 Sexually Active? Y Other Age of first menstrual cycle 12 Date of Last Pap Smear Sexual Problems? N Desired Control Method None LMP Unknown Obstetrics History GPAL:G 4 P 3 0 1 3 Type Value Full Term 3 Spontaneous 1 Living 3 Total 4 Past Encounters Encounter ID Performer Location Encounter Start Date Encounter Closed Date Diagnosis/Indication Diagnosis SNOMED-CT Code Diagnosis ICD10 Code Diagnosis Note [id number] Jluis Lynch MD [place] [address] [address] 08/04/2023 11:13:20 08/04/2023 12:12:29 Complete miscarriage [id number] O03.9 this patient is a 33-year-ol d female presents for ER follow-up. She was seen in the emergency department for irregular bleeding. She was found to have positive test. Serial HCGs were very low. HCG started very low, around 10, and proceeded to be negative very quickly. She would some irregular bleeding recently. She is a history of regular menses. She has premenstru al symptoms and periods about every 4 weeks. We agreed to observe her situation. We spent 20 minutes face-to-fa ce. More than 50% was counseling . She does not require ultrasound at this time. If her irregular bleeding persists , we will obtain ultrasound . Health Concerns Section Related Observation LastModified by Organization Detai ls LastModified Time None Recorded Concern Status LastModified by Organization Details LastModified Time None Recorded Advance Directives Directive None Recorded Payers Encounter Date Sequence Insurance Name Policy Number Policy Yuen Covered Member ID Yuen Member ID Guarantor Name 08/04/2023 1 [facility] ON OR AFTER 01/17/21 (MEDICAID REPLACEMENT - HMO) Roroleviteri Danyel [id number] Rorojyothi Montaño Notes Date Note Type Note Provider Name and Address Organization Details Recorded Time 08/04/2023 text/html this patient is a 33-year-old female presents for ER follow-up. She was seen in the emergency department for irregular bleeding. She was found to have positive test. Serial HCGs were very low. HCG started very low, around 10, and proceeded to be negative very quickly. She would some irregular bleeding recently. She is a history of regular menses. She has premenstrual symptoms and periods about every 4 weeks. We agreed to observe her situation. We spent 20 minutes [id number]. More than 50% was counseling. She does not require ultrasound at this time. If her irregular bleeding persists , we will obtain ultrasound. Jluis Lynch MD [address], [place], [address], [facility] 08/04/2023 12:12:16 OBGyn Episode Ob Episode Information Episode Created Date Number of Fetuses Patient Bloodtype Patient rh Status Prepregnancy Weight lbs Domestic Partner Domestic Partner Phone Father Name Surveying Teacher Status 08/04/19 24 1 CLOSED Fetus Data First Name Last Name Admitted to NICU Weight (g) Sex Living Outcome Pediatric Complications Fetus ID Race Codes Race Delivery Type 2267.96 F Full Term [id number] Vaginal Delivery Juno Calculation Initial Juno Date Initial Exam Date Initial Exam Provider Initial Ultrasound Date Last Menstrual Period Date Ultra Sound Weeks Gestation 0 Eighteen To Twenty Week Juno Update Ultra Sound Date Fundal Height At Umbil Quickening Date Ultra Sound Latest Weeks Gestation Final Juno Confirmed By Final Juno Confirmed Date Final Juno Date Ultra Sound Latest Days Gestation 0 0 Menstrual History Last Menstrual Date Menses Monthly On Bcp Conception Prior Menses Frequency Hcg Plus Date Menarche Onset Age Delivery Information Delivery Date Delivery Type Labor Anesthesia Weeks Gestation Incision Type Labor Labor Length Hrs Delivered By Post Complications Tubal Sterilization Discharge Date Comments 6 37 Discharge Information Feeding Method Contraceptive Method Maternal HG B and HCT Levels Ob Episode Information Episode Created Date Number of Fetuses Patient Bloodtype Patient rh Status Prepregnancy Weight lbs Domestic Partner Domestic Partner Phone Father Name Surveying Teacher Status 08/04/19 24 1 CLOSED Fetus Data First Name Last Name Admitted to NICU Weight (g) Sex Living Outcome Pediatric Complications Fetus ID Race Codes Race Delivery Type 2267.96 M Full Term [id number] Vaginal Delivery Juno Calculation Initial Juno Date Initial Exam Date Initial Exam Provider Initial Ultrasound Date Last Menstrual Period Date Ultra Sound Weeks Gestation 0 Eighteen To Twenty Week Juno Update Ultra Sound Date Fundal Height At Umbil Quickening Date Ultra Sound Latest Weeks Gestation Final Juno Confirmed By Final Juno Confirmed Date Final Juno Date Ultra Sound Latest Days Gestation 0 0 Menstrual History Last Menstrual Date Menses Monthly On Bcp Conception Prior Menses Frequency Hcg Plus Date Menarche Onset Age Delivery Information Delivery Date Delivery Type Labor Anesthesia Weeks Gestation Incision Type Labor Labor Length Hrs Delivered By Post Complications Tubal Sterilization Discharge Date Comments 9 38 Discharge Information Feeding Method Contraceptive Method Maternal HG B and HCT Levels Ob Episode Information Episode Created Date Number of Fetuses Patient Bloodtype Patient rh Status Prepregnancy Weight lbs Domestic Partner Domestic Partner Phone Father Name Surveying Teacher Status 07/23/19 24 1 CLOSED Fetus Data First Name Last Name Admitted to NICU Weight (g) Sex Living Outcome Pediatric Complications Fetus ID Race Codes Race Delivery Type , [place] ous [id number] Juno Calculation Initial Juno Date Initial Exam Date Initial Exam Provider Initial Ultrasound Date Last Menstrual Period Date Ultra Sound Weeks Gestation 0 Eighteen To Twenty Week Juno Update Ultra Sound Date Fundal Height At Umbil Quickening Date Ultra Sound Latest Weeks Gestation Final Juno Confirmed By Final Juno Confirmed Date Final Juno Date Ultra Sound Latest Days Gestation 0 0 Menstrual History Last Menstrual Date Menses Monthly On Bcp Conception Prior Menses Frequency Hcg Plus Date Menarche Onset Age Delivery Information Delivery Date Delivery Type Labor Anesthesia Weeks Gestation Incision Type Labor Labor Length Hrs Delivered By Post Complications Tubal Sterilization Discharge Date Comments 3 Discharge Information Feeding Method Contraceptive Method Maternal HG B and HCT Levels Ob Episode Information Episode Created Date Number of Fetuses Patient Bloodtype Patient rh Status Prepregnancy Weight lbs Domestic Partner Domestic Partner Phone Father Name Surveying Teacher Status 08/04/19 24 1 CLOSED Fetus Data First Name Last Name Admitted to NICU Weight (g) Sex Living Outcome Pediatric Complications Fetus ID Race Codes Race Delivery Type 4082.32 8 M Full Term [id number] Vaginal Delivery Juno Calculation Initial Juno Date Initial Exam Date Initial Exam Provider Initial Ultrasound Date Last Menstrual Period Date Ultra Sound Weeks Gestation 0 Eighteen To Twenty Week Juno Update Ultra Sound Date Fundal Height At Umbil Quickening Date Ultra Sound Latest Weeks Gestation Final Juno Confirmed By Final Juno Confirmed Date Final Juno Date Ultra Sound Latest Days Gestation 0 0 Menstrual History Last Menstrual Date Menses Monthly On Bcp Conception Prior Menses Frequency Hcg Plus Date Menarche Onset Age Delivery Information Delivery Date Delivery Type Labor Anesthesia Weeks Gestation Incision Type Labor Labor Length Hrs Delivered By Post Complications Tubal Sterilization Discharge Date Comments 1 37 spotting during entire , baby was low, pre eclampsia . Discharge Information Feeding Method Contraceptive Method Maternal HG B and HCT Levels
--- OUTSIDE RECORDS SUMMARY | 2024-10-27 19:19 | XMS_ITS | Clinical Summary ---
Author Organization [facility] Address [address] [place] [address] Care Team Providers Care Fur Glazer Name Role Phone Hollie Dasilva MD Primary Care Provider Source Comments [facility],non-owned Affiliates and Associated Physician Practices is amultiple site organization consisting of ambulatory clinics and hospital sitesin [place], [place], [place] and [place]. This disclosure is being madepursuant to the Care Everywhere program and may not contain all information available regarding this patient. Last updated 18.[facility] Allergies No known active allergies Medications * Be aware that medications may not be up to date on this document. Alwaysverify current medications with the patient. 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 Sleep apnea 03/05/2022 11/10/2022 Essential hypertension 12/10/2021 Nausea and vomiting 12/10/2021 11/10/2022 Edema of lower extremity 10/25/2020 023 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 11/10/2022 History of thyroid disorder 06/15/201710/19 Family History Medical History Relation Name Comments Diabetes - Type 2 Maternal Aunt Thyroid Disease Maternal Grandmother COPD - Chronic Obstructive Pulmonary Disease Mother Hypertension Mother Hypertension Sister Relation Name Status Comments Maternal Aunt Alive Maternal Grandmother Mother Sister Social History Tobacco Use Types Packs/Day Years Used Date Smoking Tobacco: Some Days Cigarettes Tobacco Cessation:Ready to Q uit: Not Asked; Counseling Given: Not Answered Alcohol Use Standard Drinks/Week Comments Yes 0 (1 standard drink = 0.6 oz pur e alcohol) Sex and Gender Information Value Date Recorded Sex Assigned at Not on file Gender Identity Not on file Sexual Orientation Not on file Last Filed Vital Signs Vital Sign Reading Time Taken Comments Blood Pressure 118/76 11/21/2022 2:10 PM CDT Pulse 73 11/21/2022 2:10 PM CDT Temperature 36.9 C (98.4 F) 11/21/2022 2:10 PM CDT Respiratory Rate 18 11/10/2022 10:4 5 AM CDT Oxygen Saturation 94% 11/21/2022 2:10 PM CDT Inhaled Oxygen Concentration - - Weight 119.9 kg (264 lb 6.4 oz) 11/21/2022 2:10 PM CDT Height 170.2 cm (5' 7 ) 11/21/2022 2:10 PM CDT Body Mass Index 41.41 11/21/2022 2:10 PM CDT Plan of Treatment Health Maintenance Due Date Last Done Comments PAP SMEAR 1990 HIV SCREENING 2005 HEPATITIS C SCREENING 03/31/2008 DTAP/TDAP/TD VACCINES (1 - Tdap) 2009 HEPATITIS B VACCINE (1 of 3 - 19+ 3-dose series) 2009 PNEUMOCOCCAL VACCINE (1 of 2 - PCV) 2009 COVID-19 VACCINE (1 - 2023-2 5 season) 2024 DEPRESSION SCREENING 07/20/2024 INFLUENZA VACCINE (Season Ended) 2025 05/30/20 19 ZOSTER VACCINE (1 of 2) 2040 HIB VACCINE Aged Out No longer eligi ble based on patient's age to complete this topic HPV VACCINE Aged Out No longer eligi ble based on patient's age to complete this topic MENINGOCOCCAL (Group B) VACC INE SHARED DECISION-MAKING Aged Out No longer eligibl e based on patient's age to complete this topic MENINGOCOCCAL GROUPS A/C/Y/W VACCINE Aged Out No longer eligible b ased on patient's age to complete this topic Care Teams Fur Glazer Relationship Specialty Start Date End Date Hollie Dasilva MD [address] [place] [address] PCP - General 11/04/22
--- OUTSIDE RECORDS SUMMARY | 2024-10-27 19:20 | XMS_ITS | Data Portability ---
Author Organization [facility] DARRENAbhi Address [address] [facility] [place] [address] Care Team Providers Care Drivematic Machine Operator Name Role Phone HOLLIE BROWN Primary Care Provider Assessment No assessment recorded. Plan of Treatment Reminders Order Date Submit Date Provider Last Modified By Organization Details Last Modified Time Details Appointments NEW PATIENT 15 2024 10:30A M Carlo Reid MD Not available Not available Not available ANY 15 2024 07:45A M SHERIDAN BEST NP Not available Not available Not available NEW OB 30 2024 11:00A M Mary Curiel-Lily ith, SLASHER TENDER-Bc Not available Not available Not available Lab TSH + free T4, serum 2023 024 [facility], [address] [place] [address], [address], [place], [address], 03/25/2024 15:11:38 T3, free, serum or plasma 2023 024 [facility], [facility][note 3][address] [facility], [address], [place], [address], 03/25/2024 15:11:41 HbA1c (hemoglo bin A1c), blood 2023 024 [facility], [address] [facility], [address], [place], [address], 03/25/2024 15:11:39 CMP, serum or plasma 2023 024 [facility], [address], [address], [place], [address], 03/25/2024 06:20:28 vitamin D, 25-hydro xy, total, serum 2023 024 [facility], [address], [address], [place], [address], 03/25/2024 15:11:42 ESR (erythro cyte sediment ation rate), blood 2023 024 [facility], [address], [address], [place], [address], 03/25/2024 15:11:40 ANGEL (antinuc lear antibodi es) screen, serum 2023 024 [facility], [address], [address], [place], [address], 03/25/2024 15:11:38 rf (rheumat oid factor), serum 2023 024 [facility], [address], [address], [place], [address], 03/25/2024 15:11:41 Referral dermatol ogist referral 2024 025 [facility] Madison MD (Dermatology) , [address], [facility], [place], [address], 10/27/2024 04:12:42 otolaryn gologist referral [address], [address], [place], [address], 10/11/2024 11:12:52 nutritio nist/ titian referral 2024 025 [facility], [address], [place], [address], 10/20/2024 05:35:[address] referral 2023 024 [email or web address] Ivy Márquez MD, [address], [place], [address], 10/13/2024 12:39:50 pulmonol ogist referral 2023 024 [email or web address] Zack Stan, [address], [place], [address], 10/20/2024 22:48:01 general surgeon referral [address], [address], [place], [address], 03/29/2024 17:15:51 Procedures None recorded . Surgeries None recorded . Imaging None recorded . Medication Orders ergocalc iferol (vitamin D2) 1,250 mcg (50,000 unit) capsule 2024 025 [id number], [address], [place], [place], [id number], 09/27/2024 12:04:08 gabapent in 300 mg capsule 2023 024 [facility] #[id number], [address], [place], [place], [id number], 10/26/2024 16:31:08 omeprazo le 40 mg capsule, delayed release 2023 024 [facility] #[id number], [address], [place], [place], [id number], 10/26/2024 16:31:03 Patient TargetsNo targets recorded. Patient Instructions Encounter Date Encounter Id Patient Instructions Last Modified By Organization Details Last Modified Time 03/24/2024 [id number] learning about swallowing problems [email or web address] Not available 03/24/2024 11:12:31 gastroesophageal reflux disease (GERD): care instructions [email or web address] Not available 03/24/2024 11:12:31 body mass index: care instructions [email or web address] Not available 03/24/2024 11:12:31 learning about healthy weight [email or web address] Not available 03/24/2024 11:12:31 learning about h igh blood pressure [email or web address] Not available 03/24/2024 11:12:31 09/27/2024 [id number] nosebleeds: care instructions [email or web address] Not available 09/27/2024 12:04:01 When You Want to Lose Weight: Care Instructions [email or web address] Not available 09/27/2024 12:08:11 A healthy lifest yle: care instructions [email or web address] Not available 09/27/2024 12:08:11 Reason for Referral 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 Referring Physician: Hollie Brown [facility], Encounter Date: 03/24/2024 Purchasing Administrative Assistant Referral for S leep related hypoxemia Not sleeping well Referring Physician: Hollie Brown [facility], Encounter Date: 03/24/2024 Urban Anthropologist Referral for Dysphagia Referring Physician: Hollie Brown [facility], Encounter Date: 03/24/2024 Engraver Apprentice Decorative Referral fo r Bleeding from nose recurrent epistaxis Referring Physician: Hollie Brown [facility], Encounter Date: 09/27/2024 Visual Display Manager Referral for I nflammatory dermatosis Disorder of skin of face Referring Physician: Hollie Brown [facility], Encounter Date: 09/27/2024 Conductor Freight/dietitian Refer ral for Morbid obesity Referring Physician: Hollie Brown [facility], Encounter Date: 09/27/2024 Results Created Date Observation Date Name Description Value Unit Range Abnormal Flag Note LastModifiedBy Organization Detail LastModifiedTime 03/24/20 24 03/25/2024 COMP. METAB OLIC PANEL (14) glucose 77 mg/dL 70-99 Not Available [facility] ([facility]) [address] [place], [address], 03/25/2024 06:20:28 03/24/20 24 03/25/2024 COMP. METAB OLIC PANEL (14) BUN 7 mg/dL 6-20 Not Available [facility] ([facility]) [address] [place], [address], 03/25/2024 06:20:28 03/24/20 24 03/25/2024 COMP. METAB OLIC PANEL (14) creatinine 0.96 mg/dL 0.57-1 .00 Not Available [facility] ([facility]) [address] [place], [address], 03/25/2024 06:20:28 03/24/20 24 03/25/2024 COMP. METAB OLIC PANEL (14) eGFR 80 mL/mi n/1.7 3 >59 Not Available [facility] ([facility]) [address] [place], [address], 03/25/2024 06:20:28 03/24/20 24 03/25/2024 COMP. METAB OLIC PANEL (14) BUN/creatini ne ratio 7 9-23 below low normal Not Available [facility] ([facility]) [address] [place], [address], 03/25/2024 06:20:28 03/24/20 24 03/25/2024 COMP. METAB OLIC PANEL (14) sodium 138 mmol/ L 134-14 4 Not Available [facility] ([facility]) [address] [place], [address], 03/25/2024 06:20:28 03/24/20 24 03/25/2024 COMP. METAB OLIC PANEL (14) potassium 5.0 mmol/ L 3.5-5. 2 Not Available [facility] ([facility]) [address] [place], [address], 03/25/2024 06:20:28 03/24/20 24 03/25/2024 COMP. METAB OLIC PANEL (14) chloride 103 mmol/ L 96-106 Not Available [facility] ([facility]) [address] [place], [address], 03/25/2024 06:20:28 03/24/20 24 03/25/2024 COMP. METAB OLIC PANEL (14) carbon dioxide, total 20 mmol/ L 20-29 Not Available [facility] ([facility]) [address] [place], [address], 03/25/2024 06:20:28 03/24/20 24 03/25/2024 COMP. METAB OLIC PANEL (14) calcium 9.2 mg/dL 8.7-10 .2 Not Available [facility] ([facility]) [address] [place], [address], 03/25/2024 06:20:28 03/24/20 24 03/25/2024 COMP. METAB OLIC PANEL (14) protein, total 7.4 g/dL 6.0-8. 5 Not Available [facility] ([facility]) [address] [place], [address], 03/25/2024 06:20:28 03/24/20 24 03/25/2024 COMP. METAB OLIC PANEL (14) albumin 4.1 g/dL 3.9-4. 9 Not Available [facility] ([facility]) [address] [place], [address], 03/25/2024 06:20:28 03/24/20 24 03/25/2024 COMP. METAB OLIC PANEL (14) globulin, total 3.3 g/dL 1.5-4. 5 Not Available [facility] ([facility]) [address] [place], [address], 03/25/2024 06:20:28 03/24/20 24 03/25/2024 COMP. METAB OLIC PANEL (14) bilirubin, total 0.5 mg/dL 0.0-1. 2 Not Available [facility] ([facility]) [address] [place], [address], 03/25/2024 06:20:28 03/24/20 24 03/25/2024 COMP. METAB OLIC PANEL (14) alkaline phosphatase 75 IU/L 44-121 Not Available [facility] [address] [place], [address], 03/25/2024 06:20:28 03/24/20 24 03/25/2024 COMP. METAB OLIC PANEL (14) AST (SGOT) 16 IU/L 0-40 Not Available [facility] ([facility]) [address] [facility], [place], [address], 03/25/2024 06:20:28 03/24/20 24 03/25/2024 COMP. METAB OLIC PANEL (14) ALT (SGPT) 13 IU/L 0-32 Not Available [facility] ([facility]) [address] [facility], [place], [address], 03/25/2024 06:20:28 03/24/20 24 03/25/2024 ANTIN UCLEA R AB MULTI PLEX RFX 9 ANGEL direct NEGATI VE negati ve Not Available [facility] ([facility]) [address] [place], [address], 03/25/2024 15:11:38 03/24/20 24 03/25/2024 TSH+F REE T4 TSH 0.771 uIU/m L 0.450- 4.500 Not Available [facility] ([facility]) [address] [place], [address], 03/25/2024 15:11:38 03/24/20 24 03/25/2024 TSH+F REE T4 T4,free(dire ct) 1.19 NG/dL 0.82-1 .77 Not Available [facility] ([facility]) [address] [facility], [place], [address], 03/25/2024 15:11:38 03/24/20 24 03/25/2024 HEMOG LOBIN A1C hemoglobin A1C 5.4 % 4.8-5. 6 Predi abete s: 5.7 - 6.4 Diabe gladys: >6.4 Glyce hosea contr ol for adult s with diabe gladys: <7.0 Not Available [facility] ([facility]) [address] [facility], [place], [address], 03/25/2024 15:11:39 03/24/20 24 03/25/2024 SEDIM ENTAT ION RATE- WESTE RGREN sedimentatio n rate-westerg shai 15 mm/HR 0-32 Not Available [facility] ([facility]) [address] [facility], [place], [address], 03/25/2024 15:11:40 03/24/20 24 03/25/2024 RHEUM ATOID FACTO R (RF) rheumatoid factor (rf) <10.0 IU/mL <14.0 Not Available [facility] ([facility]) [address] [place], [address], 03/25/2024 15:11:41 03/24/20 24 03/25/2024 TRIIO DOTHY KHADIJAH E (T3), FREE triiodothyro nine (T3), free 3.5 pg/mL 2.0-4. 4 Not Available [facility] ([facility]) [address] [place], [address], 03/25/2024 15:11:41 03/24/20 24 03/25/2024 VITAM IN D, 25-HY DROXY vitamin D, 25-hydroxy 24.5 NG/mL 30.0-1 00.0 below low normal Vitam in D defic iency has been defin ed by the Insti tute of Medic ine and an Endoc rine Socie ty pract ice guide line as a level of serum 25-OH vitam in D less than 20 ng/mL (1,2) . The Endoc rine Socie ty went on to furth er defin e vitam in D insuf ficie ncy as a level betwe en 21 and 29 ng/mL (2). 1. IOM (Inst itute of Medic ine). 2009. Dieta ry refer ence intak es for calci um and D. Any lewis [place]: The Natio nal [facility] Press . 2. Fariha martinez MF, Jluis caballero [place], Irvin off-F errar i SINGH, et al. Evalu ation , treat ment, and preve ntion of vitam in D defic iency : an Endoc rine Socie ty clini damion pract ice guide line. JCEM. 2010; 96(7) :1911 -30. Not Available [facility] ([facility]) [address] [facility], [place], [address], 03/25/2024 15:11:42 04/12/20 24 04/12/2024 XR, chest No observ ation record ed. [address], [place], [address], 04/13/2024 07:34:15 Result Notes None recorded. Problems Name Problem SNOMED Code Status Onset Date Resolution Date Notes Provider Name and Address Organization Details Recorded Time Fatigue 38484696 Completed 201608/29/2020 CRIS Dalal 1 10:43:12 Irregula r periods 44434375 Completed 201608/29/2020 CRIS Dalal 1 10:43:25 History of thyroid disorder 587099782 Active 2016 Not Available [facility] 2 01:37:23 Sleep pattern disturba fle 41999205 Completed 201608/29/2020 CRIS Dalal [facility] 1 10:43:34 Sleep related hypoxemi a 32873732867 9102 Active 2017 Not Available [facility] 2 01:37:23 Pregnanc y 73334321 Completed 201908/29/2020 MANINDER Molina null, [place] - [facility] 5 16:22:10 Obesity 230587099 Completed 2019 Naila Kwan MD Attn: Accounting ,[address] [place], [address] , [place] - [facility] 2 12:07:28 Group B Streptoc occus carrier 75682534835 03 Completed 2019 intrapar freedom abx Naila Kwan MD Attn: Accounting ,[address] [place], [address] , 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 Naila Kwan MD Attn: Accounting ,[address] [place], [address] , [place] - [facility] 2 12:07:28 History of thyroid disorder 876380766 Completed 2016 Naila Kwan MD Attn: Accounting ,[address] [place], [address] , [place] - [facility] 2 12:07:28 Sleep related hypoxemi a 88630768355 9102 Completed 2017 Naila Kwan MD Attn: Accounting ,[address] [place], [address] , [place] - [facility] 2 12:07:29 Transien t hyperten luis daniel of pregnanc y - delivere d with postnata l complica tion 963602340 Active 2020 Not Available [facility] 2 01:37:24 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 Not Available [facility] 2 01:37:23 Depot contrace ptive-no problem 799683587 Active 2020 Not Available [facility] 2 01:37:23 Elevated blood-pr essure reading without diagnosi s of hyperten luis daniel 999465392 Completed 202003/24/2024 Hollie Brown MD Attn: Accounting ,[address] [facility], [place], [address] , [place] - [facility] 4 11:03:32 Edema of lower extremit y 947207497 Active 2020 trace LLE Not Available [facility] 2 01:37:23 Nausea and vomiting 36289174 Active 2021 Not Available [facility] 2 01:37:23 [facility] l hyperten luis daniel 53025429 Active 2021 Not Available [facility] 2 01:37:23 Body mass index 40+ - severely obese 255331510 Active 2021 Not Available [facility] 2 01:37:23 [place] e 090559701 Active 2021 Hollie Brown MD Attn: Accounting ,[address] [facility], [place], [address] , [place] - [facility] 2 13:19:44 Sleep apnea 40175425 Active 2021 Hollie Brown MD Attn: Accounting ,[address] [facility], [place], [address] , [place] - [facility] 2 12:48:09 Morbid obesity 782839751 Active 2022 Hollie Brown MD Attn: Accounting ,[address] [facility], [place], [address] , [place] - [facility] 3 12:37:54 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 Diarrhea Hollie Brown MD Attn: Accounting ,[address] [facility], [place], [address] , [place] [facility] 3 12:38:55 Excessiv e weight gain 363525237 Active 2022 Hollie Brown MD Attn: Accounting ,[address] [facility], [place], [address] , [place] [facility] 3 12:42:46 Subclini damion hyperthy roidism 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 Active 2022 Hollie Brown MD Attn: Accounting ,[address] [facility], [place], [address] , [place] [facility] 3 11:20:13 Osteopen ia 377555275 Active 2022 Hollie Brown MD Attn: Accounting ,[address] [facility], [place], [address] , [place] [facility] 3 17:11:53 Vitamin D deficien cy 07324775 Active 2022 Hollie Brown MD Attn: Accounting ,[address] [facility], [place], [address] , [place] [facility] 3 04:30:28 Chest pain 39292438 Active 2022 Right Hollie Brown MD Attn: Accounting ,[address] [facility], [place], [address] , [place] [facility] 3 10:32:20 Low back pain 054566609 Active 2022 Hollie Brown MD Attn: Accounting ,[address] [facility], [place], [address] , [place] [facility] 3 10:41:22 Atypical chest pain 105285964 Active 2022 Hollie Brown MD Attn: Accounting ,[address] [facility], [place], [address] , [place] [facility] 3 13:07:44 Multiple joint pain 50897475 Active 2023 Hollie Brown MD Attn: Accounting ,[address] [facility], [place], [address] , [place] [facility] 4 11:08:14 Dysphagi a 37920776 Active 2023 Hollie Brown MD Attn: Accounting ,[address] [facility], [place], [address] , [place] [facility] 4 11:10:08 Gastroes ophageal reflux disease 444994179 Active 2023 Hollie Brown MD Attn: Accounting ,[address] [facility], [place], [address] , [place] [facility] 4 11:10:30 Bleeding from nose 734329444 Active 2024 Hollie Brown MD Attn: Accounting ,[address] [facility], [place], [address] , [place] [facility] 5 11:59:22 Inflamma tory dermatos is 873633073 Active 2024 Face Hollie Brown MD Attn: Accounting ,[address] [facility], [place], [address] , [place] [facility] 5 12:02:29 Pregnanc y 15963376 Active 2024 MANINDER Mol[place] null[place] [facility] 5 16:22:10 Headache 60646489 Completed 201608/29/2020 Post traumati c Rony buchanan, [place] - [facility] 1 10:43:19 Abnormal weight gain 727861586 Completed 201608/29/2020 Rony [place], [place] - [facility] 1 10:43:15 Swallowi ng problem 601172660 Completed 201608/29/2020 Rony [place], [place] - [facility] 10:43:37 Problem Notes None recorded. Procedures Surgical History Date Name Laterality Status Provider Name and Address Organization Details Recorded Time 10/25/19 Date of Last Pap Smear completed Michelle Houston MA [facility] 10/24/2024 15:06:18 02/18/20 cholecystectomy completed Kim Bejarano MA [facility] 06/11/2022 11:22:42 Imaging Results Imaging Date Name Status LastModified by Organiz ation Details LastModified Time 04/12/2024 XR, chest [address], [place], [address], 04/13/2024 07:34:15 Procedure Notes None recorded. Medical Equipment None Reported. Allergies No known drug allergies Medications Name Sig Start Date Stop Date Status Note LastModified by Organization Details LastModified Time multivita min tablet TAKE 1 TABLET BY MOUTH EVERY DAY 06/11 completed Not Available Not Available Not Available sucralfat e 1 gram tablet TAKE 2 TABLETS BY MOUTH TWICE DAILY active Not Available Not Available No t Available penicilli n V potassium 500 mg tablet 01/25 completed Not Available Not Available Not Available metronida zole 500 mg tablet Take 1 tablet twice a day by oral route for 7 days. 02/22 completed Not Available Not Available Not Available acetamino phen 300 mg-codein e 30 mg tablet TAKE 1 TABLET BY MOUTH THREE TIMES A DAY NEEDED FOR PAIN 09/27 completed Not Available Not Available Not Available omeprazol e 40 mg capsule,d elayed release TAKE 1 CAPSULE BY MOUTH EVERY DAY BEFORE A MEAL 10/26 completed Not Available Not Available Not Available aspirin 81 mg tablet,de layed release TAKE 1 TABLET BY MOUTH ONCE DAILY 02/07 completed Not Available Not Available Not Available tramadol 50 mg tablet 01/25 completed Not Available Not Available Not Available amoxicill in 500 mg tablet TAKE 2 TABLETS BY MOUTH NOW THEN 4 TIMES A DAY 09/27 completed Not Available Not Available Not Available Vitamin tablet Take 1 tablet every day by oral route as directed for 90 days. 09/17 completed Not Available Not Available Not Available famotidin e 20 mg tablet TAKE 1 TABLET BY MOUTH TWICE DAILY 09/27 completed Not Available Not Available Not Available amitripty line 25 mg tablet Take 1 tablet every day by oral route. 08/26 completed Not Available Not Available Not Available cyanocoba zoie (vit B-12) 1,000 mcg/mL injection solution Inject 1 mL every month by subcutan eous route. 09/17 completed Not Available Not Available Not Available gabapenti n 300 mg capsule TAKE 1 CAPSULE BY MOUTH THREE TIMES DAILY 10/26 completed Not Available Not Available Not Available omeprazol e 20 mg capsule,d elayed release TAKE 1 CAPSULE BY MOUTH EVERY DAY BEFORE A MEAL 09/27 completed Not Available Not Available Not Available folic acid 1 mg tablet TAKE 4 TABLETS BY MOUTH EVERY DAY DIRECTED 12/10 completed Not Available Not Available Not Available ergocalci ferol (vitamin D2) 1,250 mcg (50,000 unit) capsule TAKE 1 CAPSULE BY MOUTH EVERY WEEK active Not Available Not Available No t Available ibuprofen 600 mg tablet TAKE 1 TABLET BY MOUTH THREE TIMES DAILY WITH MEALS 10/26 completed Not Available Not Available Not Available labetalol 100 mg tablet TAKE 1 TABLET BY MOUTH TWICE DAILY active Not Available Not Available No t Available ondansetr on 4 mg disintegr ating tablet DISSOLVE 1 TABLET ON THE TONGUE EVERY 8 HOURS NEEDED FOR NAUSEA OR VOMITING 09/27 completed Not Available Not Available Not Available medroxypr ogesteron e 150 mg/mL intramusc ular suspensio n Inject 1 mL every 3 months by intramus cular route. 12/10 completed Not Available Not Available Not Available ParaGard T 380A 380 square mm intrauter ine device 10/23 completed Patient changed mind Not Available Not Available Not Available oxycodone 5 mg tablet TAKE 1 TABLET BY MOUTH EVERY 4 HOURS NEEDED FOR PAIN 06/11 completed Not Available Not Available Not Available escitalop arleen 10 mg tablet TAKE 1 TABLET BY MOUTH EVERY DAY 12/10 completed Not Available Not Available Not Available nitrofura ntoin monohydra te/macroc rystals 100 mg capsule 07/25 completed Not Available Not Available Not Available Oysco 500/D 500 mg-5 mcg (200 unit) tablet TAKE 1 TABLET BY MOUTH TWICE DAILY 12/10 completed Not Available Not Available Not Available FeroSul 325 mg (65 mg iron) tablet TAKE 1 TABLET BY MOUTH EVERY DAY 12/10 completed Not Available Not Available Not Available Calcium with Vitamin D 600 mg-10 mcg (400 unit) tablet Take 1 tablet twice a day by oral route. 12/10 completed Not Available Not Available Not Available Gummies active Not Available Not Available Not Available WesTab Plus 27 mg iron-1 mg tablet TAKE 1 TABLET BY MOUTH EVERY DAY 12/10 completed Not Available Not Available Not Available Vitals Date Recorded Body height Body mass index (BMI) Body weight Oxygen saturation Oxygen saturation in Arterial blood by Pulse oximetry Heart rate Systolic blood pressure Diastolic blood pressure Provider Name and Address Organization Details Last Updated DateTime 4 170.18 cm 40.7 kg/m2 940426. 02 g 98 % 98 % 77 /min 140 mm[Hg] 98 mm[Hg] Jaycee Navarro MA [facility] 4 10:40:51 Date Recorded Body height Respiratory rate Oxygen saturation Oxygen saturation in Arterial blood by Pulse oximetry Pain severity - 0-10 verbal numeric rating [Score] - Reported Heart rate Body mass index (BMI) Body weight Systolic blood pressure Diastolic blood pressure Provider Name and Address Organization Details Last Updated DateTime 4 170.18 cm 18 /min 96 % 96 % 0 84 /min 40.3 kg/m2 214303. 32 g 135 mm[Hg] 80 mm[Hg] Jaspal Cochran MA [facility] 4 15:04:41 Date Recorded Body height Body mass index (BMI) Body weight Heart rate Body temperature Oxygen saturation Oxygen saturation in Arterial blood by Pulse oximetry Systolic blood pressure Diastolic blood pressure Provider Name and Address Organization Details Last Updated DateTime 5 170.18 cm 41.5 kg/m2 744345. 98 g 70 /min 98 [degF] 98 % 98 % 116 mm[Hg] 70 mm[Hg] Starla Posadas MA [facility] 5 11:21:39 Social History Question Answer Notes LastModified by Organizat ion Details LastModified Time Tobacco Smoking Status Former Smoker Flavored tobacco Keyshawn Barahona LPN [place], [place] - [facility] 04/08/2022 09:52:49 Do You Have An Advance Directive? No Information not available 07/08/2017 What Is Your Level Of Alcohol Consumption? Occasional Information not available 07/08/2017 Is Blood Transfusion Acceptable In An Emergency? Yes Information not available 07/08/2017 What Is Your Level Of Caffeine Consumption? Moderate Information not available 10/16/2020 How Much Tobacco Do You Chew? None Information not available 07/08/2017 In The 14 Days Before Symptom Onset, Have You Had Close Contact With A Laboratory-confi rmed COVID-19 While That Case Was Ill? No Information not available 12/25/2021 In The 14 Days Before Symptom Onset, Have You Had Close Contact With A Person Who Is Under Investigation For COVID-19 While That Person Was Ill? No Information not available 12/25/2021 Have You Been To An Area Known To Be High Risk For COVID-19? No Information not available 12/25/2021 Are You Currently Employed? Yes Information not available 02/25/2022 What Type Of Diet Are You Following? REGULAR Information not available 07/08/2017 Which Illicit Or Recreational Drugs Have You Used? None Information not available 07/08/2017 Do You Or Have You Ever Used E-cigarettes Or Vape? Never Used Electronic Cigarettes Information not available 04/27/2020 Education 2 Year College Information not available 07/08/2017 What Is The Highest Grade Or Level Of School You Have Completed Or The Highest Degree You Have Received? [id number] Information not available 09/17/2020 Who Is Your Employer? [employer] Information not available 02/25/2022 What Is Your Occupation? Unemployed Information not available 07/08/2017 Live Alone Or With Others? With Others Information not available 07/08/2017 Do You Have A Medical Power Of Cocktail Server? No Information not available 12/25/2021 What Was The Date Of Your Most Recent Tobacco Screening? 09/27/2024 Information not available 09/27/2024 How Many Children Do You Have? 3 Information not available 09/17/2020 What Is Your Current Pack Years? 10-19packyear s Information not available 09/17/2020 Performs Monthly Self-breast Exam? No Information not available 07/08/2017 Do You Use Protection During Sex? Always Information not available 07/08/2017 What Is Your Relationship Status? Single Information not available 07/08/2017 Do You Use Your Seat Belt Or Car Seat Routinely? Yes Information not available 09/17/2020 Seat Belts Used Routinely Yes Information not available 07/08/2017 Are You Sexually Active? Yes Information not available 07/08/2017 At What Age Did You Start Smoking Tobacco? 18 Information not available 07/08/2017 Are You Passively Exposed To Smoke? Yes Information not available 10/16/2020 Do You Or Have You Ever Used Smokeless Tobacco? Never Used Smokeless Tobacco Information not available 04/27/2020 General Stress Level High Information not available 07/08/2017 Do You Use Any Illicit Or Recreational Drugs? No Information not available 02/25/2022 Do You Use Sunscreen Routinely? No Information not available 07/08/2017 Has Tobacco Cessation Counseling Been Provided? No Information not available 10/16/2020 On What Date Was Tobacco Cessation Counseling Provided? 09/27/2024 Information not available 09/27/2024 How Many Years Have You Smoked Tobacco? 2 [email or web address] Information not available 05/18/2017 Do You Or Have You Ever Used Any Other Forms Of Tobacco Or Nicotine? No Information not available 10/16/2020 Sex: Unknown Functional Status Question Answer Note LastModified by Organization D etails LastModified Time Are you able to care for yourself? Yes Information n ot available 02/25/2022 What is your exercise level? Heavy Information not available 07/08/2017 Mental Status None recorded. Family History Relationship Description Onset Age of this Age Resolved Age Notes LastModified by Organization Details LastModified Time Mother Diabetes mellitus [email or web address] Not available 2016 12:39:59 Mother Asthma [email or web address] Not available 1 12:40:18 Mother Hypertensive disorder [email or web address] Not available 2016 12:40:30 Maternal Grandmother Diabetes mellitus [email or web address] Not available 2016 12:39:59 Brother Asthma [email or web address] Not available 05/18/2017 12:40:18 Sister Asthma [email or web address] Not available 1 12:40:18 Medical History Condition Response Other N High Blood Pressure Y Breast Cancer N Lung Disease N Depression N COPD N Blood Clots N Breast Problem N Anesthesia Complications N Headaches/Migraines Y Anxiety Disorder Y Muscle, Joint, or Bone Problems N Arthritis N Polyps N Acid Reflux (GERD) Y Cancer N Endometriosis N High Cholesterol N Liver Disease N Headaches Y Kidney or Bladder Problems N Thyroid Problems N GI Problems Y Acne N Eating Disorder N Anemia N Heart Attack ([place]) N Ovarian Cancer N Diabetes N Blood Transfusions N Seizures/Epilepsy N Abuse/Domestic Violence N Asthma N Hepatitis N Heart Disease N Pre-Eclampsia N Hypertension N Osteoporosis N Heart Failure N Gynecological History Statement/Question Response Abnormal Pap N Flow Light Date of LMP 09/14/2024 On BCP's at Conception? N STIs/STDs N HPV Vaccine N Age at Menarche 13 Current Control Method Age at First Child 16 Frequency of Cycle (Q days) 7 Sexually Active? Y Menses Monthly No Date of Last Pap Smear 10/24/2024 Sexual Problems? Y LMP Approximate Desired Control Method Hormonal In jection Obstetrics History GPAL:G 5 P 3 0 1 3 Type Value Multiple Births 0 Full Term 3 Induced 0 Spontaneous 1 Premature 0 Living 3 Ectopics 0 Total 5 Immunizations Vaccine Type Date Status Note Provider Janes e and Address Organization Details Recorded Time Hib, unspecified formulation 1 completed Sandrine Bruno [place], [place] [facility] 02/18/2023 10:05:36 Hib, unspecified formulation 1 completed Sandrine [place] [facility] 02/18/2023 10:05:36 Hib, unspecified formulation 2 collins Bruno [place] [facility] 02/18/2023 10:05:36 Hib, unspecified formulation 5 completed Sandrinedanny Bruno, [place] [facility] 02/18/2023 10:05:36 MMR 2 completed Sandrine Sarpy, [place] [facility] 02/18/2023 10:05:36 MMR 3 completed Sandrine Sarpy, [place] [facility] 02/18/2023 10:05:36 meningococcal MPSV4 6 completed Sandrine Kiana, [place] [facility] 02/18/2023 10:05:36 Tdap 1 completed Sandrinedanny Bruno, [place] [facility] 02/18/2023 10:05:36 DTP 1 completed Sandrine Kiana, [place] [facility] 02/18/2023 10:05:36 DTP 3 completed Sandrine Bruno, [place] [facility] 02/18/2023 10:05:36 DTP 1 completed Sandrine Bruno, [place] [facility] 02/18/2023 10:05:36 DTP 4 completed Sandrine Kiana, [place] [facility] 02/18/2023 10:05:36 DTP 5 completed Sandrine Bruno, [place] [facility] 02/18/2023 10:05:36 OPV 1 completed Sandrine Bruno, [place] [facility] 02/18/2023 10:05:36 OPV 3 completed Sandrine Kiana, [place] [facility] 02/18/2023 10:05:36 OPV 1 completed Sandrine Sarpy, [place] [facility] 02/18/2023 10:05:36 OPV 4 completed Sandrine Bruno, [place] [facility] 02/18/2023 10:05:36 OPV 5 completed Sandrine Sarpy, [place] [facility] 02/18/2023 10:05:36 Td (adult), 2 Lf tetanus toxoid, preservative free, adsorbed 9 completed [place] [facility] 02/18/2023 10:05:36 Hep B, adolescent or pediatric 5 completed Sandrine [place] [facility] 02/18/2023 10:05:36 Hep B, adolescent or pediatric 6 completed Sandrine [place] [facility] 02/18/2023 10:05:36 Hep B, adolescent or pediatric 9 completed Sandrine [place] [facility] 02/18/2023 10:05:36 Hep B, adolescent or pediatric 2 [place] [facility] 02/18/2023 10:05:36 Hep A, ped/adol, 2 dose 6 completed Sandrine [place] [facility] 02/18/2023 10:05:36 Hib (HbOC) 3 [place] [facility] 02/18/2023 10:05:36 Hib (HbOC) 4 [place] [facility] 02/18/2023 10:05:37 Influenza, split virus, quadrivalent, PF 1 [place] [facility] 02/18/2023 10:05:37 Influenza, split virus, quadrivalent, preservative 9 completed Not Available [facility] 08/06/2019 02:38:44 Tdap 0 [place] [facility] 06/11/2020 13:21:55 Past Encounters Encounter ID Performer Location Encounter Start Date Encounter Closed Date Diagnosis/Indication Diagnosis SNOMED-CT Code Diagnosis ICD10 Code Diagnosis Note [id number] MD Lolly George (Adult Med) [address] [place] [address] [phone] 0 05/18/2017 11:52:47 05/18/2017 13:14:10 Headache 90716898 R51 Swallowing problem 03406 2002 R13.10 She wants to discss at next visit Abnormal weight gain 161 836030 R63.5 Reportedly related to changed diet [id number] MD Lolly George (Adult Med) [address] [place] [address] 91004-081 0 06/15/2017 11:58:04 06/15/2017 13:06:15 Fatigue 17973558 R53.83 Swallowing problem 22697 2002 R13.10 Abnormal weight gain 161 690019 R63.5 Reportedly related to changed diet Irregular periods 174042 07 N92.6 Refer to POLICY WRITER History of thyroid disorder 595838737 Z86.39 Sleep fredis mary jo disturbance 10281318 G47.9 [id number] RHEA Trammell HC (SMOG TECHNICIAN) [address] [place] [address] 36616-978 0 07/08/2017 10:22:11 07/08/2017 11:57:07 Gynecologic examination 31916386 Z01.411 AGE APPROPRIAT E COUNSELING DONE Exposure t o sexually transmissible disorder 520349986 Z20.2 Family mary nning surveillance 905374371 Z30.09 Since she say she has migrane SINGH counseled about different forms of progestero ne only control like OCPS, Depo Provera, Nexplanon, progestero ne IUD, Copper IUD. she opted Depo provera. counseled about risks and benefits of it and also return of fertility, effect on bone mineral density. Advised to take calcium and vitamin D. safe sex counseling and advised to use condoms. Overweight 819616200 E66 .3 Counseled About weight loss, diet and excercise. Patient refused physical medicine teacher consult. Positive s creening for depression on PHQ-9 (Patient Health Questionnaire 9) 0897859941 20535 Z13.89 ADVISED PATIENT TO F/U WITH COUNSELLOR AND ALSO PSYCHIATRI [facility] T [id number] MD Lolly Arriaga HC (SMOG TECHNICIAN) [address] [place] [address] [phone] 0 07/23/2017 10:22:17 07/23/2017 11:28:19 Trichomonal vaginitis 319941146 A59.00 Flagyl prescribed for BV should cover trichomona s. Patient say she has 2 more pills of flagyl left. She say partner was treated. Safe sex counseling and use of condoms. Advised no intercours e until test of cure is negative. Return to clinic in 5-6 weeks for test of cure. Cervicovag inal cytology: Low grade squamous intraepithelial lesion 778636526 R87.612 Counseled thoroughly about LGSIL and HPV. Safe sex counseling done. Advised patient that she need colposcopy after ADRIANNE for trichomona s was negative. Counseled thoroughly about colposcopy procedure. Patient verbalized understand ing. 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 Safe sex counseling done. [id number] RHEA Trammell (SMOG TECHNICIAN) [address] [place] [address] [phone] 0 08/26/2017 11:03:16 08/26/2017 12:25:40 Trichomonal vaginitis 530726120 A59.00 She say partner was treated. Safe sex counseling and use of condoms. Advised no intercours e until test of cure is negative. Cervicovag inal cytology: Low grade squamous intraepithelial lesion 971762445 R87.612 Counseled thoroughly about LGSIL and HPV. Safe sex counseling done. Advised patient that she need colposcopy after ADRIANNE for trichomona s was negative. Counseled thoroughly about colposcopy procedure. Patient verbalized understand ing. [id number] HOWIE Guan (SMOG TECHNICIAN) [address] [place] [address] [phone] 0 10/16/2017 10:08:48 10/16/2017 11:42:42 Uses depot contraception 768987278 Z30.42 [id number] MD Lolly George (Adult Med) [address] [place] [address] 71741-819 0 10/22/2017 12:19:45 10/22/2017 14:27:45 Sleep related hypoxemia 8267333903 99797 G47.36 Per polysomnog erika. F/U for oximetry as scheduled Sleep fredis mary jo disturbance 14388105 G47.9 Fatigue 15081639 R53.83 [id number] MD Lolly George HC (Adult Med) [address] [place] [address] [phone] 0 05/30/2019 11:55:11 05/31/2019 12:34:23 Administration of influenza vaccine 29029116 Z23 Sleep rela tim hypoxemia 2621584840 77455 G47.36 Per polysomnog erika. F/U for oximetry as scheduled. F/U with pulmonary History of thyroid disorder 682297550 Z86.39 Abnormal weight gain 161 316406 R63.5 Reportedly related to changed diet [id number] ANDREW SOTO (SMOG TECHNICIAN) [address] [place] [address] 15951-059 0 06/07/2019 10:40:15 06/07/2019 13:19:57 Gynecologic examination 76916715 Z01.419 Venereal d isease screening 869756846 Z11.3 Family mary nning surveillance 168579973 Z30.09 Discussed different control options with patient such as OCPs, patch, ring, Depo Provera shot, Nexplanon, and IUDs. Pt used to be on Depo but discontinu ed due to side effects. She is not currently sexually active and not interested in control at this time. [id number] KEYSHAWN ANGUIANO NP [facility] [address] [address]98[address] 2 06/10/2019 14:00:25 06/13/2019 12:24:32 Obstructive sleep apnea syndrome 72708607 G47.33 Overweight 791910301 E66 .3 Encouraged weight loss -Choosing low-fat, low-calori e foods -Eating smaller portions -Drinking water instead of sugary drinks -Being physically active [id number] ANDREW SOTO (SMOG TECHNICIAN) [address] [place] [address] 26990-511 0 01/26/2020 09:16:48 01/27/2020 07:34:38 Routine care 367608901 Z34.90 Initial OB at [facility]. LMP 5-15-20. No identified maternal risk factors. Denies cramping, bleeding. New OB labs drawn today. Order given for 1st trimester US, advised to schedule around 10 weeks. OB educationa l reviewed and provided to patient. RTC 4 weeks. Venereal d isease screening 974264725 Z11.3 Consent obtained. screening 2437 67448 Z36.85 Obesity 915429433 E66.9 Recommende d total weight gain < 20 pounds. [id number] ANDREW SOTO (SMOG TECHNICIAN) [address] [place] [address] [phone] 0 02/23/2020 10:48:09 02/24/2020 07:36:47 Routine care 640987162 Z34.90 MARINE at 11w5d. c/b MTHFR and GBS. US 02/14 with EDC 09/08/2020. B12 administer ed today. Ahmeouiz00 drawn. RTC in 4 weeks. Heterozygo us methylenetetrahydrofo late reductase mutation [id number] 67304 E72.12 heterozygo us for the MTHFR W6028A variant. Continue ASA, progestero ne, and folic acid as prescribed . B12 injection given. screening 2436009 Z36.85 [id number] ANDREW SOTO (SMOG TECHNICIAN) [address] [place] [address] 24120-866 0 03/27/2020 10:55:05 03/27/2020 12:55:15 Routine care 498442837 Z34.90 MARINE at 16.w3d. c/b MTHFR and GBS. FHT present at 142. AFP ordered to screen for spina bifida. B12 injection given. Order for 2nd trimester US given, to be completed around 20 weeks. RTC in 4 weeks. Heterozygo us methylenetetrahydrofo late reductase mutation [id number] 21543 E72.12 heterozygo us for the MTHFR X2682V variant. Continue ASA, progestero ne, and folic acid as prescribed . B12 injection given. screening 2436 88273 Z36.0 Completed today [id number] ANDREW SOTO (SMOG TECHNICIAN) [address] [place] [address] [phone] 0 04/27/2020 10:01:52 05/03/2020 09:46:51 Routine care 244069821 Z34.90 30 yo AAF presenting for MARINE at 20w6d. c/b MTHFR and GBS. She has no specific concerns today. Denies contractio ns, LOF. FHT present at 145. B12 injection given today. US on 04/19/2020 was within normal limits. RTC in 4 weeks. Heterozygo us methylenetetrahydrofo late reductase mutation [id number] 66548 E72.12 heterozygo us for the MTHFR Z4375K variant. Continue ASA, progestero ne, and folic acid as prescribed . B12 injection given today. Influenza vaccination declined 044865799 Z28.21 Seasonal flu vaccine offered to patient but patient declined immunizati on at this time. [id number] RHEA Hardin (SMOG TECHNICIAN) [address] [place] [address] [phone] 0 05/04/2020 09:56:14 05/08/2020 11:42:02 Pelvic and perineal pain 957035362 R10.2 [id number] ANDREW SOTO (SMOG TECHNICIAN) [address] [place] [address] [phone] 0 05/28/2020 10:20:14 05/28/2020 15:29:32 Routine care 095998250 Z34.90 30 yo AAF presenting for MARINE at 25w2d. c/b MTHFR and GBS. She has no specific concerns today. Denies contractio ns, LOF. FHT present at 144. B12 injection given today. RTC in 2 weeks for GCT, informatio nal handout provided. Heterozygo us methylenetetrahydrofo late reductase mutation [id number] 16214 E72.12 heterozygo us for the MTHFR I2550P variant. Continue ASA, progestero ne, and folic acid as prescribed . B12 injection given today. Influenza vaccination declined 567085319 Z28.21 Seasonal flu vaccine offered to patient but patient declined immunizati on at this time. Obesity 939187988 E66.9 Recommende d total weight gain < 20 pounds. [id number] ANDREW SOTO (SMOG TECHNICIAN) [address] [place] [address] 74503-738 0 06/11/2020 10:31:00 06/18/2020 08:56:54 Routine care 092316573 Z34.90 30 yo AAF presenting for MARINE at 27w2d. c/b MTHFR and GBS. She complains of blood streaks when blowing her nose and gum bleeding when brushing her teeth with new toothbrush . Reassured pt. Advised applying vaseline to nostrils for moisture to avoid nose bleeds and change toothbrush to one with softer bristles. White vaginal discharge likely leukorrhea of . +FM. FHT present at 137. Reassuring fundal height. GCT completed today. Tdap injection given. Kick counts discussed. Order for 3rd trimester US provided. RTC in 2 weeks. screening 2437 54532 Z36.9 1 hour gct completed today Venereal d isease screening 624276581 Z11.3 Heterozygo us methylenetetrahydrofo late reductase mutation [id number] 43471 E72.12 heterozygo us for the MTHFR B4072U variant. Continue ASA, progestero ne, and folic acid as prescribed . B12 administer ed 05/28 Obesity 629789552 E66.9 Recommende d total weight gain < 20 pounds. Total weight gain thus far 13#. [id number] ANDREW SOTO [facility] (SMOG TECHNICIAN) [address] [place] [address] [phone] 0 06/27/2020 10:39:02 06/28/2020 07:43:49 Routine care 856320173 Z34.90 30 yo AAF presenting for MARINE at 29w4d. c/b MTHFR and GBS. She has no concerns today. +FM. FHT present at 140. Reassuring fundal height. GCT negative. B12 injection given. US completed yesterday, awaiting report. RTC in 2 weeks. Heterozygo us methylenetetrahydrofo late reductase mutation [id number] 65220 E72.12 heterozygo us for the MTHFR L4117U variant. Continue ASA, progestero ne, and folic acid as prescribed . B12 administer ed today. Obesity 175770348 E66.9 Recommende d total weight gain < 20 pounds. Total weight gain thus far 11#. [id number] ANDREW SOTO (SMOG TECHNICIAN) [address] [place] [address] [phone] 0 07/11/2020 10:08:28 07/12/2020 07:10:00 Routine care 509428909 Z34.90 30 yo AAF presenting for MARINE at 31w4d. c/b MTHFR and GBS. She has no concerns today. +FM. Needs refill on calcium pills. US 06/26 with EFW 43rd percentile . RTC in 2 weeks. Heterozygo us methylenetetrahydrofo late reductase mutation [id number] 20082 E72.12 heterozygo us for the MTHFR N4424F variant. Continue ASA, progestero ne, and folic acid as prescribed . B12 administer ed 06/27. Obesity 825220607 E66.9 Recommende d total weight gain < 20 pounds. Total weight gain thus far 18#. [id number] ANDREW SOTO (SMOG TECHNICIAN) [address] [place] [address] 07/25/2020 10:40:30 07/26/2020 08:00:37 Heterozygous methylenetetrahydrofo late reductase mutation [id number] 23034 E72.12 heterozygo us for the MTHFR M8219X variant. Continue ASA, progestero ne, and folic acid as prescribed . B12 administer ed today. Routine an tenatal care 309924982 Z34.90 30 yo AAF presenting for MARINE at 33w4d. c/b MTHFR and GBS. She has no concerns today. +FM. Denies contractio ns, LOF. Pt brought FMLA paperwork to be completed. B12 administer ed. RTC in 2 weeks. Obesity 749009869 E66.9 Recommende d total weight gain < 20 pounds. Total weight gain thus far 19#. [id number] ANDREW SOTO HC (SMOG TECHNICIAN) [address] [place] [address] 08/08/2020 09:14:14 08/10/2020 10:57:02 Routine care 203288928 Z34.90 30 yo AAF presenting for MARINE at 35w4d. c/b MTHFR and GBS. Denies LOF. +FM. RTC in 1 week. Obesity 729400195 E66.9 Recommende d total weight gain < 20 pounds. Total weight gain thus far 22#. Heterozygo us methylenetetrahydrofo late reductase mutation [id number] 37518 E72.12 heterozygo us for the MTHFR E0853I variant. Continue ASA, progestero ne, and folic acid as prescribed . B12 administer ed 07/25. Threatened premature labor - not delivered 978044011 O47.9 Pt presented to L&D last week for contractio ns, was monitored temporaril y and given betamethas one and Procardia. She states contractio ns have since subsided. WTC/WLB reviewed. [id number] ANDREW SOTO HC (SMOG TECHNICIAN) [address] [place] [address] 0 08/15/2020 10:17:51 08/16/2020 21:46:12 Routine care 065832666 Z34.90 30 yo AAF presenting for MARINE at 36w4d. c/b MTHFR and GBS. Pt having irregular contractio ns. Denies LOF. +FM. GBS screening today. RTC in [address] Rey. Heterozygo us methylenetetrahydrofo late reductase mutation [id number] 25221 E72.12 heterozygo us for the MTHFR W6114U variant. Continue ASA, progestero ne, and folic acid as prescribed . B12 administer ed 07/25. Obesity 569512945 E66.9 Recommende d total weight gain < 20 pounds. Total weight gain thus far 20#. screening 2437 76203 Z36.85 GBS screening completed today Venereal d isease screening 601311940 Z11.3 [id number] Rony Ambrocio HC (SMOG TECHNICIAN) [address] [place] [address] 42049-927 0 08/22/2020 10:06:25 08/28/2020 09:33:05 Routine care 254689043 Z34.[address] reptococcus carrier 9063450591 103 Z22.330 Heterozygo us methylenetetrahydrofo late reductase mutation 1374273408 41072 E72.12 last B12 07/25 Obesity 046237759 E66.9 [id number] Rony Ambrocio HC (SMOG TECHNICIAN) [address] [place] [address] [phone] 0 08/29/2020 10:07:17 08/31/2020 07:21:22 Routine care 054857281 Z34.93 30 yo AAF presenting for MARINE at 38w4d. c/b MTHFR and GBS. 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 She is bleeding today. Pt to return in 3 weeks for IUD insertion. depression 58 878162 F53.0 [id number] RHEA Trammell (SMOG TECHNICIAN) [address] [place] [address] 81129-797 0 10/16/2020 11:38:32 10/18/2020 14:00:35 care 052439442 Z39.2 Heterozygo us methylenetetrahydrofo late reductase mutation [id number] 74286 E72.12 last B12 07/[address] reptococcus carrier 9251768513 103 Z22.330 Depot contraceptive-no problem 847365193 Z30.013 Transient hypertension of - delivered with complication 547801870 O13.9 depression 58 389421 F53.0 Exposure t o sexually transmissible disorder 399379118 Z20.2 [id number] MD Lolly George (Adult Med) [address] [place] [address] 01145-933 0 10/25/2020 09:54:19 10/25/2020 11:01:28 Elevated blood-pressure reading without diagnosis of hypertension 474003490 R03.0 post . Currently on labetalol 100 mg bid. Instructed pt to take one-half tab bid and get BP check in two weeks Edema of bhavin angeler extremity 500670329 R60.0 Observe at present. [id number] RHEA Garrett (Adult Med) [address] [place] [address] [phone] 0 10/31/2020 11:44:17 11/01/2020 17:01:51 Blood pressure taking 37828983 Z01.30 Pt sitting in R arm 126/84. [id number] Rony Rey Lolly HC (SMOG TECHNICIAN) [address] [place] [address] 62826-893 0 01/18/2021 10:49:06 01/18/2021 11:37:44 Contraception care 177786564 Z30.40 [id number] ANDREW SOTO HC (SMOG TECHNICIAN) [address] [place] [address] [phone] 0 02/07/2021 11:09:03 02/14/2021 14:29:22 Well adult monitoring check done 499704263 Z76.89 BP stable today at 112/70. Pt still on labetalol since , will f/u with PCP. Pt given paperwork for return to work. RTC prn. [id number] MD Lolly George (Adult Med) [address] [place] [address] [phone] 0 12/10/2021 12:01:58 12/11/2021 11:08:56 Nausea and vomiting 20828017 R11.2 Essential hypertension 19328674 I10 History of thyroid disorder 146909688 Z86.39 Body mass index 40+ - severely obese 901757981 Z68.41 Sleep rela tim hypoxemia 3211777237 09470 G47.36 Per polysomnog erika. F/U for oximetry as scheduled. F/U with pulmonary [id number] Zack Pierce MD [facility] [address] [place] [address] 12/25/2021 14:33:01 12/27/2021 07:44:21 Obstructive sleep apnea syndrome 62638316 G47.33 Home sleep study done 08/08/20; ahi 1.0/hr, lowest 87%, LTFUBMI at time of home sleep study 36.5BMi 12/24/21 -40.9Order ing home sleep study Overweight 932323655 E66 .3 [id number] Julian Hernández MD [facility] [address] [place] [address] 02/25/2022 10:32:42 02/25/2022 11:51:51 Cholelithiasis without obstruction [id number] K80.20 patient with signs and symptoms related to disease of the gallbladde r, for which I recommend surgical removal of said gallbladde r. Will benefit from laparoscop ic cholecyste ctomy. Risks and benefits explained to patient, including bleeding, bile leak, and CBD injury. Patient in agreement with the plan of care. Will proceed to OR as soon as is convenient . [id number] MD Lolly George (Adult Med) [address] [place] [phone] 03/05/2022 11:59:42 03/06/2022 10:22:27 Sleep apnea 70725731 G47.30 waiting CPAP equipment Gallstone [id number] K80. 70 Pt advised to contact surgery re cholectect jericho History of thyroid disorder 766792373 Z86.39 Essential hypertension 36047253 I10 [id number] Julian Hernández MD [facility] [address] [place] [address] 04/08/2022 09:45:26 04/09/2022 12:19:31 Biliary colic 02311432 K80.50 s/p cholecyste ctomy Postoperative visit 1836 23344 Z09 1) diet as tolerated2 ) cleanse and moisturize incisions daily3) no lifting over 30 lbs until 6 weeks post-op4) return to office should a problem arise [id number] ANDREW SOTO (SMOG TECHNICIAN) [address] [place] [phone] 06/11/2022 10:49:18 06/19/2022 13:47:23 Gynecologic examination 06782282 Z01.419 Pt is 32 yo F presenting for WWE.Cervic al cancer screening: Last Pap 2019 NILM, due reast cancer screening: Reviewed recommenda tions for initiation at age 40 with annual screening. Discussed SBESTI screening: declined.C ontracepti on: not practiced or desiredDie t/exercise : Counseled regarding importance of physical activity, healthy diet and appropriat e calcium intake.RTC in 1yr Obesity 383149066 E66.9 BMI 42.8. Recommende d daily exercise with a goal of 150 min/week of moderate-s trenuous activity and a balanced diet with an emphasis on fruits, vegetables , whole grains, legumes, lean protein, and mono/polyu nsaturated fats. 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 Excessive weight gain 22 2574993 R63.5 Fatigue 74816534 R53.83 Abnormal weight gain 161 295690 R63.5 Reportedly related to changed diet [id number] MD Lolly George (Adult Med) [address] [place] [phone] 0 12/02/2022 15:50:07 12/05/2022 14:50:16 Morbid obesity 305009911 E66.01 Osteopenia 338149707 M85 .80 [id number] MD Lolly George (Adult Med) [address] [place] [phone] 02/18/2023 10:01:29 02/20/2023 19:50:53 Chest pain 43305619 R07.9 Low back pain 431484693 M54.50 [id number] MD Lolly George (Adult Med) [address] [place] [phone] 03/24/2024 10:27:57 03/25/2024 15:04:32 Body mass index 40+ - severely obese 155955095 Z68.41 Essential hypertension 47885377 I10 Will reevaluate in 3 monts 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 F/U for oximetry as scheduled. F/U with pulmonary Multiple joint pain 3567 8005 M25.50 Dysphagia 88840938 R13.1 0 Gastroesop hageal reflux disease 678141544 K21.9 Increase PPI Atypical chest pain 1025 62873 R07.89 [id number] Julian Hernández MD [facility] [address] [place] [address] 04/12/2024 12:49:07 04/12/2024 15:02:32 Postoperative pain 905972766 G89.18 Patient with unusual postoperat min pain related to a small stab incision for the Veress needle for cholecyste ctomy. There does not appear to be a biliary etiology for this patient's pain, but it is possible that this is neuropathi c pain related to spasm or irritated cutaneous or subcutaneo us nerves. With that in mind, I have instilled 10 cc of 1% lidocaine plain in the area with an attempt to provide at least temporary relief, and we will prescribe gabapentin t.i.d. for 1 month. Should the symptoms not improve, return to the office and we will explore further causes of the patient's pain. [id number] Zack Pierce MD [facility] [address] [place] [address] 06/29/2024 14:52:51 06/30/2024 08:49:57 Obstructive sleep apnea syndrome 83727631 G47.33 continue CPAPdiscus sed sleep hygiene Essential hypertension 01383085 I10 home meds Morbid obesity 139121536 E66.01 encouraged to loose wt [id number] Hollie Brown MD [facility] (Adult [facility]) [address] [place] [address] 09/27/2024 11:12:26 09/28/2024 11:22:47 Vitamin D deficiency 71578846 E55.9 Bleeding from nose 49341 6005 R04.0 Inflammato ry dermatosis 186163020 L30.9 Morbid obesity 761373937 E66.01 Health Concerns Section Related Observation LastModified by Organization Detai ls LastModified Time None Recorded Concern Status LastModified by Organization Details LastModified Time None Recorded Advance Directives Directive N: Payers Encounter Date Sequence Insurance Name Policy Number Policy Yuen Covered Member ID Yuen Member ID Guarantor Name 03/24/2024 1 [facility] ON OR AFTER 01/17/21 (MEDICAID REPLACEMENT - HMO) Aria Montaño [id number] Aria Montaño 04/12/2024 1 [facility] ON OR AFTER 01/17/21 (MEDICAID REPLACEMENT - HMO) Aria Montaño [id number] Aria Montaño 06/29/2024 1 [facility] ON OR AFTER 21 (MEDICAID REPLACEMENT - HMO) Aria Montaño [id number] Aria Montaño 09/27/2024 1 [facility] ON OR AFTER 01/17/21 (MEDICAID REPLACEMENT - HMO) Aria Montaño [id number] Aria Montaño Notes Date Note Type Note Provider Name and Address Organization Details Recorded Time 03/24/2024 text/html Has increasing p ain in multiple joints for the past four years. Has had increasing RUQ pain. Also needs referral back to sleep medicine provider. Has had trouble swallowing or the past year. Saw GI two years ago. Unclear if EGD was done Hollie Brown MD Attn: Accounting[address] [place], [address], [facility] 03/24/2024 11:14:47 04/12/2024 text/html Patient approxim ately 2 years status post laparoscopic cholecystectomy. For the past several months she complains of pain starting at the stab incision site of her Veress needle. States that it will be a sharp sudden pain, intermittent and random in nature, that we will shoot across her abdomen to the right. We will occasionally be accompanied by a wave of nausea or vomiting. Does not last long. Not related to food. Not similar to her pre cholecystectomy symptoms. Julian Hernández MD [address] [place], [address], [facility] [place] 04/12/2024 13:16:23 06/29/2024 text/html ref for OSAOSA w as Dx 2 years ago. Sleep study was done at [facility]. 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 Singh s trouble lying on her right side because of nausea. Wants to see a senior manager mergers & acquisitions for facial skin boils. She is concerned about her weight. Has occasional nose bleeds. She does use CPAP every night. Hollie Brown MD Attn: Accounting[address] [facility], [place], [address], [place] 09/27/2024 12:09:42 OBGyn Episode Ob Episode Information Episode Created Date Number of Fetuses Patient Bloodtype Patient rh Status Prepregnancy Weight lbs Domestic Partner Domestic Partner Phone Father Name [employer] Status 10/27/[address] Liban MCWILLIAMS Fetus Data First Name Last Name Admitted to NICU Weight (g) Sex Living Outcome Pediatric Complications Fetus ID Race Codes Race Delivery Type [id number] Juno Calculation Initial Juno Date Initial Exam Date Initial Exam Provider Initial Ultrasound Date Last Menstrual Period Date Ultra Sound Weeks Gestation 06/21/2025 10/26/2024 09/14/2024 0 Eighteen To Twenty Week Juno Update Ultra Sound Date Fundal Height At Umbil Quickening Date Ultra Sound Latest Weeks Gestation Final Juno Confirmed By Final Juno Confirmed Date Final Juno Date Ultra Sound Latest Days Gestation 0 0 Menstrual History Last Menstrual Date Menses Monthly On Bcp Conception Prior Menses Frequency Hcg Plus Date Menarche Onset Age 0209/14/2024 false false 13 Genetic Screening And Infection History Question Response Note Patient's Age Will Be 35 Yea rs Or Older At Estimated Date of Delivery true Thalassemia (Indonesian, Maori, Mediterranean, Or Background): MCV < 80 false Neural Tube Defect (Meningom yelocele, Spina Bifida, Or Anencephaly) false Congenital Heart Defect false Down Syndrome false David-Sachs (eg, Judaism, Cajun , Dutch-Tuvaluan) false Brandon Disease false Sickle Cell Disease Or Trait () false Hemophilia Or Other Blood Disorders false Muscular Dystrophy false Cystic Fibrosis false Barby's Chorea false Mental Retardation/Autism true pt you ngest son has autism If Yes, Was Person Tested For Fragile X? false Other Inherited Genetic Or C hromosomal Disorder false Maternal Metabolic Disorder (eg, Type 1 Diabetes, PKU) false Patient Or Baby's Father Had A Child With Defects Not Listed Above false Recurrent Loss, Or A Stillbirth true 1 miscarriage in 2023 @ 8 weeks Medications (including Suppl ements, Vitamins, Herbs, OTC Drugs), Illicit/Recreational Drugs, Alcohol true gummies If Yes, Agent(s) And Strength/Dosage false Any Other Genetic History false Live With Someone With TB Or Exposed To TB false Patient Or Partner Has Histo ry Of Genital Herpes false Rash Or Viral Illness Since Last Menstrual Period false History Of STD, Gonorrhea, C hlamydia, HPV, Syphilis false Other Infection History false History of HIV false History of Hepatitis false Prior GBS-infected child false Delivery Information Delivery Date Delivery Type Labor Anesthesia Weeks Gestation Incision Type Labor Labor Length Hrs Delivered By Post Complications Tubal Sterilization Discharge Date Comments Discharge Information Feeding Method Contraceptive Method Maternal HG B and HCT Levels Ob Episode Information Episode Created Date Number of Fetuses Patient Bloodtype Patient rh Status Prepregnancy Weight lbs Domestic Partner Domestic Partner Phone Father Name [employer] Status 01/26/20 1 AB Positive 230 CLOSED Fetus Data First Name Last Name Admitted to NICU Weight (g) Sex Living Outcome Pediatric Complications Fetus ID Race Codes Race Delivery Type Jessica Arguelles nce false [phone] 9 M true Full Term PEDS Dr. 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 Having boy - name Jessica middlename undecided Danyel for last name. 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 Juno Calculation Initial Juno Date Initial Exam Date Initial Exam Provider Initial Ultrasound Date Last Menstrual Period Date Ultra Sound Weeks Gestation 09/08/2020 01/26/2020 [email or web address] 02/15/2020 12/02/2019 10 Eighteen To Twenty Week Juno Update Ultra Sound Date Fundal Height At Umbil Quickening Date Ultra Sound Latest Weeks Gestation Final Juno Confirmed By Final Juno Confirmed Date Final Juno Date Ultra Sound Latest Days Gestation 02/15/20 20 10 [email or web address] 08/29/2020 021 4 Pre- Flowsheet Flowsheet Date 01/26/2020 Valentine Score Blood Edema Fundus Height Fundus Units Glucose Ketones Leukocytes Nitrite Labor Signs Protein Cervic Dilation Cervic Effacement Cervic Station neg none 7 wks none negative neg 0cm 0% - 4 Type Weight in lbs Pre/Post Dialysis Refused Weight 230.570220309827 BP Diastolic BP Location Tested BP Systolic BP Type 64 120 sitting Fetus Heart Rate Present Fetus Movement Comments Initial OB at approximately 8 weeks. LMP 5-15-20. No identified maternal risk factors. Denies cramping, bleeding. New OB labs drawn today. Order given for 1st trimester US, advised to schedule around 10 weeks. OB educational reviewed and provided to patient. RTC 4 weeks. Flowsheet Date 02/23/2020 Valentine Score Blood Edema Fundus Height Fundus Units Glucose Ketones Leukocytes Nitrite Labor Signs Protein Cervic Dilation Cervic Effacement Cervic Station neg none 11 wks none negative neg Type Weight in lbs Pre/Post Dialysis Refused Weight 230.664335286079 BP Diastolic BP Location Tested BP Systolic BP Type 56 96 sitting 62 102 sitting Fetus Heart Rate Present Fetus Movement Comments Routine care at 11w 5d. US 02/14 with EDC 09/08/2020. B12 administered today. [email or web address] drawn. RTC in 4 weeks. Flowsheet Date 03/27/2020 Valentine Score Blood Edema Fundus Height Fundus Units Glucose Ketones Leukocytes Nitrite Labor Signs Protein Cervic Dilation Cervic Effacement Cervic Station neg none 16 wks none negative none neg Type Weight in lbs Pre/Post Dialysis Refused Weight 237.490113805371 BP Diastolic BP Location Tested BP Systolic BP Type 66 108 sitting Fetus Heart Rate Present A 142 Present Fetus Movement Comments MARINE at 16w3d. AFP drawn. B12 injection given. Order for 2nd trimester US given, to be completed around 20 weeks. RTC in 4 weeks. Flowsheet Date 04/27/2020 Valentine Score Blood Edema Fundus Height Fundus Units Glucose Ketones Leukocytes Nitrite Labor Signs Protein Cervic Dilation Cervic Effacement Cervic Station neg none 20 wks none negative none neg Type Weight in lbs Pre/Post Dialysis Refused Weight 239.744453235781 BP Diastolic BP Location Tested BP Systolic BP Type 68 110 Fetus Heart Rate Present A 145 Present Fetus Movement A Yes Comments MARINE at 20w6d. She has no spe cific concerns today. Denies contractions, LOF. B12 injection given today. US on 04/19/2020 was within normal limits. Flowsheet Date 05/04/2020 Valentine Score Blood Edema Fundus Height Fundus Units Glucose Ketones Leukocytes Nitrite Labor Signs Protein Cervic Dilation Cervic Effacement Cervic Station Type Weight in lbs Pre/Post Dialysis Refused BP Diastolic BP Location Tested BP Systolic BP Type Fetus Heart Rate Present Fetus Movement Comments Flowsheet Date 05/28/2020 Valentine Score Blood Edema Fundus Height Fundus Units Glucose Ketones Leukocytes Nitrite Labor Signs Protein Cervic Dilation Cervic Effacement Cervic Station neg none 25 wks none negative Backpain trace Type Weight in lbs Pre/Post Dialysis Refused Weight 243.039273843484 BP Diastolic BP Location Tested BP Systolic BP Type 62 110 sitting Fetus Heart Rate Present A 144 Present Fetus Movement A Yes Comments MARINE at 25w2d. She has no spe cific concerns today. Denies contractions, LOF. B12 injection given today. RTC in 2 weeks for GCT, informational handout provided. Flowsheet Date 06/11/2020 Valentine Score Blood Edema Fundus Height Fundus Units Glucose Ketones Leukocytes Nitrite Labor Signs Protein Cervic Dilation Cervic Effacement Cervic Station neg none 27 wks none negative none neg Type Weight in lbs Pre/Post Dialysis Refused Weight 243.046456825053 BP Diastolic BP Location Tested BP Systolic BP Type 64 108 sitting Fetus Heart Rate Present A 137 Present Fetus Movement A Yes Comments MARINE at 27w2d. 1 hour GCT com pleted today. Tdap injection given. Kick counts discussed. Order for 3rd trimester US provided to evaluate growth. Flowsheet Date 06/27/2020 Valentine Score Blood Edema Fundus Height Fundus Units Glucose Ketones Leukocytes Nitrite Labor Signs Protein Cervic Dilation Cervic Effacement Cervic Station neg none 29 wks none negative none trace Type Weight in lbs Pre/Post Dialysis Refused Weight 241.05986415255 BP Diastolic BP Location Tested BP Systolic BP Type 64 124 sitting Fetus Heart Rate Present A 140 Present Fetus Movement A Yes Comments MARINE at 29w4d. GCT negative. B12 injection given. US completed yesterday, awaiting report. Flowsheet Date 07/11/2020 Valentine Score Blood Edema Fundus Height Fundus Units Glucose Ketones Leukocytes Nitrite Labor Signs Protein Cervic Dilation Cervic Effacement Cervic Station neg none 31 wks none negative none neg Type Weight in lbs Pre/Post Dialysis Refused With clothes 248.914236242635 BP Diastolic BP Location Tested BP Systolic BP Type 68 114 sitting Fetus Heart Rate Present A 148 Present Fetus Movement A Yes Comments MARINE at 31w4d. She has no con cerns today. US 06/26 with EFW 43rd percentile. Flowsheet Date 07/25/2020 Valentine Score Blood Edema Fundus Height Fundus Units Glucose Ketones Leukocytes Nitrite Labor Signs Protein Cervic Dilation Cervic Effacement Cervic Station neg none 33 wks none negative Pressure trace Type Weight in lbs Pre/Post Dialysis Refused Weight 249.903065584967 BP Diastolic BP Location Tested BP Systolic BP Type 58 100 sitting Fetus Heart Rate Present A 138 Present Fetus Movement A Yes Comments MARINE at 33w4d. She has no con cerns today. +FM. Denies contractions, LOF. B12 administered. Flowsheet Date 08/08/2020 Valentine Score Blood Edema Fundus Height Fundus Units Glucose Ketones Leukocytes Nitrite Labor Signs Protein Cervic Dilation Cervic Effacement Cervic Station neg none 35 wks none negative Uterine Contract ions trace Type Weight in lbs Pre/Post Dialysis Refused Weight 252.151453445544 BP Diastolic BP Location Tested BP Systolic BP Type 62 94 sitting Fetus Heart Rate Present A 140 Present Fetus Movement A Yes Comments MARINE at 35w4d. Pt presented t o L&D last week for contractions, was monitored for a few hours and given betamethasone and Procardia. She states contractions have since subsided. WTC/WLB reviewed. Flowsheet Date 08/15/2020 Valentine Score Blood Edema Fundus Height Fundus Units Glucose Ketones Leukocytes Nitrite Labor Signs Protein Cervic Dilation Cervic Effacement Cervic Station neg none 36 wks none negative Uterine Contract ions trace 1cm 20% -4 Type Weight in lbs Pre/Post Dialysis Refused Stated 250.745040818243 BP Diastolic BP Location Tested BP Systolic BP Type 64 116 sitting Fetus Heart Rate Present A 147 Present Fetus Movement A Yes Comments MARINE at 36w4d. Having irregul ar contractions. GBS screening today. WTC/WLB reviewed. Flowsheet Date 08/22/2020 Valentine Score Blood Edema Fundus Height Fundus Units Glucose Ketones Leukocytes Nitrite Labor Signs Protein Cervic Dilation Cervic Effacement Cervic Station neg none 37 wks none negative none neg 1cm 80% - 2 Type Weight in lbs Pre/Post Dialysis Refused With clothes 254.269492691480 BP Diastolic BP Location Tested BP Systolic BP Type Fetus Heart Rate Present A 138 Present Fetus Movement A Yes Comments WTC/WLB. B12 given. Flowsheet Date 08/29/2020 Valentine Score Blood Edema Fundus Height Fundus Units Glucose Ketones Leukocytes Nitrite Labor Signs Protein Cervic Dilation Cervic Effacement Cervic Station neg none 39 cm none negative none neg Type Weight in lbs Pre/Post Dialysis Refused With clothes 254.227164596699 BP Diastolic BP Location Tested BP Systolic BP Type 82 118 sitting Fetus Heart Rate Present A 155 Present Fetus Movement A Yes Comments c/b MTHFR and GBS. + movement. Unsure of PPBC. Flowsheet Date 09/17/2020 Valentine Score Blood Edema Fundus Height Fundus Units Glucose Ketones Leukocytes Nitrite Labor Signs Protein Cervic Dilation Cervic Effacement Cervic Station Type Weight in lbs Pre/Post Dialysis Refused With clothes 244.581955609015 BP Diastolic BP Location Tested BP Systolic BP Type Fetus Heart Rate Present Fetus Movement Comments Menstrual History Last Menstrual Date Menses Monthly On Bcp Conception Prior Menses Frequency Hcg Plus Date Menarche Onset Age 0512/02/2019 false false Genetic Screening And Infection History Question Response Note Patient's Age Will Be 35 Yea rs Or Older At Estimated Date of Delivery false Thalassemia (Indonesian, Maori, Mediterranean, Or Background): MCV < 80 false Neural Tube Defect (Meningom yelocele, Spina Bifida, Or Anencephaly) false Congenital Heart Defect false Down Syndrome false David-Sachs (eg, Judaism, Cajun, Dutch-Tuvaluan) f alse Brandon Disease false Sickle Cell Disease Or Trait () false Hemophilia Or Other Blood Disorders false Muscular Dystrophy false Cystic Fibrosis false Lyon's Chorea false Mental Retardation/Autism false If Yes, Was Person Tested For Fragile X? false Other Inherited Genetic Or Chromosomal Disorder true hetero MTHFR Maternal Metabolic Disorder (eg, Type 1 Diabetes , PKU) false Patient Or Baby's Father Had A Child With Defects Not Listed Above false Recurrent Loss, Or A Stillbirth false Medications (including Suppl ements, Vitamins, Herbs, OTC Drugs), Illicit/Recreational Drugs, Alcohol true Vit D, Oys co If Yes, Agent(s) And Strength/Dosage false Any Other Genetic History false Live With Someone With TB Or Exposed To TB false Patient Or Partner Has History Of Genital Herpes false Rash Or Viral Illness Since Last Menstrual Perio d false History Of STD, Gonorrhea, Chlamydia, HPV, Syphi lis false Other Infection History true GBS History of HIV false History of Hepatitis false Prior GBS-infected child false Plans and Education First Trimester Discussed Date Discussion Item Discussion Note Discuss ed By 01/26/2020 [place] [id number] 01/26/2020 Alcohol [place] [id number] 01/26/2020 Intimate partner violence denies [email or web address] 01/26/2020 [facility] 01/26/2020 Nutrition counseling ; special diet; dietary precautions (mercury, listeriosis) [place] [id number] 01/26/2020 Childbirth classes/h ospital facilities schedule of classes provided [place] [id number] 01/26/2020 HIV and other routin e [facility] 01/26/2020 Risk factors identif ied by history [facility] 01/26/2020 Weight gain counseling <[address] [facility] opai1 01/26/2020 Exercise [place] [id number] 01/26/[address] [facility] [facility] 01/26/2020 Use of any medicatio ns (including supplements, vitamins, herbs, or OTC drugs) [place] [id number] 01/26/2020 [facility] 01/26/2020 [facility] 01/26/2020 Tobacco/smoking cess ation counseling (ask, advise, assess, assist, and arrange) [place] [id number] 01/26/2020 Illicit/recreational drugs [facility] [place] er, complete cessation advised [place] [id number] 01/26/2020 Dental care dental consent provided jcor [email or web address] 01/26/2020 Travel [email or web address] 01/26/2020 Seat belt use [email or web address] 01/26/2020 Indications for ultrasonography [email or web address] 01/26/2020 Avoidance of saunas or hot tubs [email or web address] 01/26/2020 Toxoplasmosis precau tions (cats/raw meat) [email or web address] Second Trimester Discussed Date Discussion Item Discussion Note Discuss ed By 03/27/2020 Selecting a care provider Barry ([facility]) [email or web address] 03/27/2020 family planning/tubal sterilization depo vs nexplanon [email or web address] 03/27/2020 Depression screening (when indicated) [email or web address] 03/27/2020 Abnormal lab values jcortopa [email or web address] 03/27/2020 Signs and symptoms o f labor [email or web address] 03/27/2020 Intimate partner violence denies misty [email or web address] 03/27/2020 Tobacco/smoking cess ation counseling (ask, advise, assess, assist, and arrange) [facility] Third Trimester Discussed Date Discussion Item Discussion Note Discuss ed By 06/27/2020 Intimate partner violence misty [email or web address] 06/27/2020 Anesthesia plans NCB, yes to epi dural if needed, [facility] 06/27/2020 education (n ewborn screening, jaundice, SIDS/safe sleeping position, car seat) discussed at [facility] [email or web address] 06/27/2020 Circumcision yes [email or web address] 06/27/2020 Postterm counseling [email or web address] [email or web address] 06/27/2020 movement monitoring kick counts dis cussed [email or web address] 06/27/2020 plans to breastfeed jcortop [email or web address] 06/27/2020 Labor signs wtc/wlb reviewed [email or web address] 1 06/27/2020 depression jcorto [email or web address] 06/27/2020 Family medical leave or disability forms [email or web address] 06/27/2020 Tobacco/smoking cess ation counseling (ask, advise, assess, assist, and arrange) denies [email or web address] 06/27/2020 [facility]s and [facility] o [email or web address] Delivery Information Delivery Date Delivery Type Labor Anesthesia Weeks Gestation Incision Type Labor Labor Length Hrs Delivered By Post Complications Tubal Sterilization Discharge Date Comments 1 None None 38.6 2 Rony Rey MD None false 09/02/2020 Discharge Information Feeding Method Contraceptive Method Maternal HG B and HCT Levels Bottle none Ob Episode Information Episode Created Date Number of Fetuses Patient Bloodtype Patient rh Status Prepregnancy Weight lbs Domestic Partner Domestic Partner Phone Father Name [employer] Status 07/08/20 17 1 CLOSED Fetus Data First Name Last Name Admitted to NICU Weight (g) Sex Living Outcome Pediatric Complications Fetus ID Race Codes Race Delivery Type 2267.96 M Prematur e 61079 Vaginal Juno Calculation Initial Juno Date Initial Exam [...] Complications Tubal Sterilization Discharge Date Comments 9 None 36 true 22 Discharge Information Feeding Method Contraceptive Method Maternal HG B and HCT Levels Ob Episode Information Episode Created Date Number of Fetuses Patient Bloodtype Patient rh Status Prepregnancy Weight lbs Domestic Partner Domestic Partner Phone Father Name [employer] Status 07/08/20 17 1 CLOSED Fetus Data First Name Last Name Admitted to NICU Weight (g) Sex Living Outcome Pediatric Complications Fetus ID Race Codes Race Delivery Type 2692.97 5704 F Full Term [id number] Vaginal Juno Calculation Initial Juno Date Initial Exam [...] Complications Tubal Sterilization Discharge Date Comments 6 None 36 true 3 Discharge Information Feeding Method Contraceptive Method Maternal HG B and HCT Levels
[2024-10-27 19:39] VITALS: BP 132/77; PULSE 75; RESP 16; TEMP 36.4; O2SAT 99
--- OUTSIDE RECORDS SUMMARY | 2024-10-27 23:34 | XMS_ITS | Clinical Summary ---
Author Organization [facility] Address [address] [place] [address] Care Team Providers Care Environmental Services Associate Name Role Phone Hollie Dasilva MD Primary Care Provider Source Comments [facility],non-owned Affiliates and Associated Physician Practices is amultiple site organization consisting of ambulatory clinics and hospital sitesin [place], [place], [place] and [place]. This disclosure is being madepursuant to the Care Everywhere program and may not contain all information available regarding this patient. Last updated 18.[facility] Allergies No known active allergies Medications * [...] age to complete this topic Care Teams Environmental Services Associate Relationship Specialty Start Date End Date Hollie Dasilva MD [address] [place] [address] PCP - General 11/04/22
--- NOTE | 2024-10-28 00:15 | ED_ITS ---
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 Patient states her LMP was 10/06/24. She had a positive at home test 1 week ago. States yesterday she began developing brown tinged vaginal discharge woke up this morning with bright red vaginal bleeding. She has had to change her pad twice today. She is reporting lower abdominal cramping. Denies vomiting or fevers. States she had a miscarriage in June 2024. Her OBGYN is with [facility]. Related Data Home Medications ?Medication ?Instructions ?Recorded ?Confirmed ?Last Taken ?Type aspirin 81 mg tablet,delayed 81 mg DAILY 08/03/20 08/31/20 08/28/20 08:00 History release calcium 500 mg (as 1 tablet DAILY 08/03/20 08/31/20 08/30/20 08:00 History carbonate)-vitamin D3 5 mcg (200 unit) tablet (Oysco 500/D) folic acid 1 mg tablet 1 mg DAILY 08/03/20 08/31/20 08/30/20 08:00 History multivitamin 1 tablet DAILY 08/03/20 08/31/20 08/30/20 08:00 History vitamin with calcium 1 tablet DAILY 08/03/20 08/31/20 08/30/20 08:00 History no.72-iron 27 mg-folic acid 1 mg tablet ( Vitamins Plus Low Iron) Allergies Allergy/AdvReac Type Severity Reaction Status Date / Time No Known Allergies Allergy Verified 10/27/24 19:17 Review of Systems 2 Review of Systems: All systems reviewed & are unremarkable except as noted in HPI and below PMFSH Past Medical History Medical History Anxiety Migraines Family History Family History Mother Hypertension Social History Social History Smoking status: Former smoker Substance use: never Gender identity (if verbalized by the patient): Female Spiritual care concerns: No Exam 2 Narrative: GENERAL: Well-appearing, well-nourished, and in no acute distress. HEAD: Normocephalic, atraumatic. EYES: PERRLA and EOMI. ENT: Nares clear, no rhinorrhea or epistaxis. Mucous membranes moist. NECK: Supple. CHEST: Clear to auscultation. No respiratory distress. HEART: Regular rate and rhythm. No murmur heard. Normal peripheral pulses. ABDOMEN: Normoactive bowel sounds. Abdomen soft with minimal tenderness to the suprapubic region. No rebound or rigidity. No CVA tenderness. : Normal external genitalia. Mild amount of blood in the vaginal vault, no tissue or clots visualized. Cervical os closed, no adnexal masses or tenderness, no CMT EXTREMITIES: Normal range of motion. No edema. SKIN: Warm, dry, no rash. NEURO: No focal deficits. Alert and oriented x3 Course Vital Signs Vital signs: Vital Signs Temperature 97.6 F 10/27/24 19:39 Pulse Rate 75 10/27/24 19:39 Respiratory Rate 16 10/27/24 19:39 Blood Pressure 132/77 10/27/24 19:39 Pulse Oximetry 99 10/27/24 19:39 Oxygen Delivery Room Air 10/27/24 19:39 Temperature 98.8 F 10/28/24 00:47 Pulse Rate 77 10/28/24 00:47 Respiratory Rate 14 10/28/24 00:47 Blood Pressure 132/76 10/28/24 00:47 Pulse Oximetry 100 10/28/24 00:47 Oxygen Delivery Room Air 10/28/24 00:39 MDM - OB/Uterine Contractions MDM Narrative Medical decision making narrative: 34-year-old female presents emergency department for vaginal bleeding in that started yesterday. LMP 10/06, patient had at home positive test 1 week ago. Triage vitals are stable. Abdomen is soft with mild tenderness to suprapubic region, no rebound, guarding or rigidity. Pelvic exam with mild amount of blood in the vaginal vault. CBC is without leukocytosis or anemia. Chemistries are unremarkable. UA with blood, no white blood cells or bacteria. Rh type is positive, RhoGAM not required. Pelvic ultrasound shows an intrauterine gestational sac 5 weeks and 4 days. Patient updated on results. Her bleeding has significantly lightened to spotting. On re-evaluation patient is resting comfortably in exam bed. Will discharge home with close OBGYN follow-up. Advised to have beta HCG repeated in 48 hours. Discussed strict ED return precautions. She is agreeable with the plan verbalized understanding. Discharged in stable condition Lab Data 10/28/24 00:02 10/28/24 00:02 Labs: Lab Results 10/28/24 10/28/24 Range/Units 00:01 00:02 WBC 6.0 (4.5-10.0) K/mm3 RBC 4.54 (4.2-5.4) M/mm3 Hgb 12.2 (12.0-15.0) g/dL Hct 37.7 (37.0-47.0) % MCV 83.0 (80-100) fl MCH 26.9 (26-34) pg MCHC 32.4 (32-36) g/dl RDW 15.0 H (11.5-14.5) % Plt Count 338 (150-375) k/mm3 MPV 9.4 (7.4-10.4) fl Immature Gran % (Auto) 0.8 H (0-0.5) % Neut % (Auto) 52.2 (45.5-73.1) % Lymph % (Auto) 38.1 (18.3-44.2) % [place] % (Auto) 7.7 (2.6-8.5) % Eos % (Auto) 0.7 (0-4.4) % Baso % (Auto) 0.5 (0.2-1.2) % Lymph # (Auto) 2.28 (0.9-3.2) K/mm3 [place] # (Auto) 0.5 (0.1-0.6) K/mm3 Eos # (Auto) 0.0 (0-0.3) K/mm3 Baso # (Auto) 0.0 (0.0-0.1) K/mm3 Abs Immat Gran (auto) 0.05 H (0.00-0.031) K/mm3 Absolute Neuts (auto) 3.1 (1.3-6.7) K/mm3 Absolute Nucleated RBC 0.000 (0.0-0.012) K/mm3 Nucleated RBC % 0.0 (0.0-0.2) % PT 13.6 (11.1-14.7) Seconds INR 1.0 APTT 27.9 (22.3-36.8) Seconds Sodium 137 (137-145) mmol/L Potassium 4.0 (3.4-5.0) mmol/L Chloride 104 (98-107) mmol/L Carbon Dioxide 23 (22-30) mmol/L Anion Gap 10 (4-12) mmol/L BUN 11 (7-17) mg/dL Creatinine 0.81 (0.7-1.0) mg/dL Estim Creat Clear Calc 72 ml/min Estimated GFR > 60 (59 - ) Glucose 85 (65-110) mg/dL Calcium 8.6 (8.4-10.2) mg/dL Total Bilirubin 0.2 (0.2-1.3) mg/dL AST 20 (14-36) U/L ALT 14 (6-35) U/L Alkaline Phosphatase 57 (38-126) U/L Total Protein 8.0 (6.3-8.2) g/dL Albumin 4.1 (3.5-5.1) g/dL Beta HCG, Quant 2917.20 mIU/ML Urine Color Yellow (Yellow) Urine Appearance Cloudy H (Clear) Urine pH 5.5 (5.0-9.0) Ur Specific [place] 1.035 (1.001-1.035) Urine Protein Negative (Negative) mg/dL Urine Glucose (UA) Negative (Negative) mg/dL Urine Ketones Trace H (Negative) mg/dL Ur Blood (Man) 3+ H (Negative) Urine Nitrate Negative (Negative) Urine Bilirubin Negative (Negative) Urine Urobilinogen 1.0 (<2.0) mg/dL Leukocyte Esterase Rfl Negative (Negative) LIA/UL Urine RBC 3-5 H (0-2) /hpf Urine WBC 0-5 (0-3) /hpf Ur Squamous Epith Cells Occasional (Few) /hpf Urine Bacteria None seen /hpf Urine Casts 0-2 Blood Type AB Positive Antibody Screen Negative Doses of RhIg Required 0 Discharge Plan Discharge Clinical Impression: Vaginal bleeding during Patient Disposition: Home Condition: Stable Instructions: Antibiotic Form, Threatened Miscarriage (ED) Additional Instructions: Your evaluated in the emergency department for vaginal bleeding in . Your beta hCG hormone level is 2917.2. The pelvic ultrasound shows a intrauterine sac measuring 5 weeks and 4 days. Please have your beta hCG hormone repeated in 48 hours by her OBGYN. Return to the emergency department if you saturate through 1 pad or tampon per hour, you develop worsening abdominal pain, fever, or other concerning symptoms. Patient Language: Chinese Prescriptions: No Action ibuprofen 600 mg tablet 600 mg PO TID PRN (Reason: pain) Qty: 20 0RF famotidine [Pepcid] 20 mg tablet 20 mg PO BID Qty: 20 0RF ondansetron 4 mg tablet,disintegrating 4 mg PO Q8H PRN (Reason: nausea and vomiting) Qty: 10 0RF ibuprofen 600 mg Tablet 600 mg PO Q6H Qty: 90 2RF multivitamin Tablet 1 tablet DAILY aspirin 81 mg tablet,delayed release (DR/EC) 81 mg DAILY folic acid 1 mg tablet 1 mg DAILY calcium carbonate-vitamin D3 [Oysco 500/D] 500 mg(1,250mg) -200 unit tablet 1 tablet DAILY Vitamin Plus Low Iron 27 mg iron- 1 mg tablet 1 tablet DAILY Follow-up/Referrals: Brown,Hollie Thomas MD [Primary Care Provider] -
[2024-10-28 00:19] LABS: Alanine Aminotransferase 14 U/L (6-35); Albumin Level 4.1 g/dL (3.5-5.1); Alkaline Phosphatase 57 U/L (38-126); Anion Gap 10 mmol/L (4-12); Aspartate Amino Transferase 20 U/L (14-36); Bilirubin,Total 0.2 mg/dL (0.2-1.3); Blood Urea Nitrogen 11 mg/dL (7-17); Calcium 8.6 mg/dL (8.4-10.2); Carbon Dioxide 23 mmol/L (22-30); Chloride 104 mmol/L (98-107); Estimated CRCL calculation 72 ml/min; Estimated Glomerular Filt Rate > 60; Glucose 85 mg/dL (65-110); Sodium 137 mmol/L (137-145)
[2024-10-28 00:20] LABS: Add Urine Microscopic? YES; Appearance Urine Cloudy (Clear); Bacteria Urine None Seen /hpf; Bilirubin Urine Negative (Negative); Blood Urine 3+ (Negative); Color Urine Yellow (Yellow); Glucose Urine UA Negative (Negative); Ketones Urine Trace mg/dL (Negative); Leukocyte Esterase Ur Negative LEU/UL (Negative); Nitrate Urine Negative (Negative); Non Pathogenic Casts 0-2; Partial Thromboplastin Time 27.9 Seconds (22.3-36.8); Protein Urine Negative (Negative); Specific Grav Ur 1.035 (1.001-1.035); Squamous Epithelial Cell Urine Occasional /hpf (Few); WBC Urine 0-5 /hpf (0-3); pH Urine 5.5 (5.0-9.0)
[2024-10-28 00:28] LABS: Basophils Percent Auto 0.5 % (0.2-1.2); Eosinophils Percent Auto 0.7 % (0-4.4); Hematocrit 37.7 % (37.0-47.0); Hemoglobin 12.2 g/dL (12.0-15.0); Immature Granulocyte Absolute 0.05 K/mm3 (0.00-0.031); Immature Granulocyte Percent A 0.8 % (0-0.5); Lymphocytes Absolute Auto 2.28 K/mm3 (0.9-3.2); Lymphocytes Percent Auto 38.1 % (18.3-44.2); Mean Corpuscular HGB Conc 32.4 g/dl (32-36); Mean Corpuscular Hemoglobin 26.9 pg (26-34); Mean Platelet Volume 9.4 fl (7.4-10.4); Monocytes Absolute Auto 0.5 K/mm3 (0.1-0.6); Monocytes Percent Auto 7.7 % (2.6-8.5); Neutrophils Absolute Auto 3.1 K/mm3 (1.3-6.7); Neutrophils Percent Auto 52.2 % (45.5-73.1); Platelet Count Result 338 k/mm3 (150-375); Red Blood Count 4.54 M/mm3 (4.2-5.4)
[2024-10-28 00:35] LABS: Prothrombin Time 13.6 Seconds (11.1-14.7)
[2024-10-28 00:39] VITALS: BP 132/76; PULSE 73; RESP 15; TEMP 36.6; O2SAT 98
[2024-10-28 00:47] VITALS: BP 132/76; PULSE 77; RESP 14; TEMP 37.1; O2SAT 100
--- NOTE | 2024-10-28 00:48 | PC.NURSE ---
This RN assumed care of pt @[id number]
[2024-10-28 02:02] VITALS: BP 123/76; PULSE 69; RESP 14; O2SAT 100
== END 2024-10-28 02:04 | disposition home or self-care (01) ==
PROVIDERS: Emergency Provider Physician Assistant; PCP Internal Medicine Gastroenterology
DX: O20.9 Hemorrhage in early pregnancy, unspecified (principal); O09.521 Supervision of elderly multigravida, first trimester; Z3A.01 Less than 8 weeks gestation of pregnancy; Z87.891 Personal history of nicotine dependence; Z79.82 Long term (current) use of aspirin
CPT/HCPCS: 36415; 76801; 80053; 81001; 84702; 85025; 85461; 85610; 85730; 86850; 86900; 86901; 99284

== ENCOUNTER 2025-01-26 12:55 | Outpatient (CLI) | payer OTHER, SELFPAY ==
--- NOTE | ~2025-01-26 | US_ITS ---
Pelvic ultrasound. Clinical History: Pelvic pain Technique: Realtime transabdominal and transvaginal scanning of the pelvis was performed. Color flow Doppler and Doppler spectral analysis were performed. Findings: The uterus is retroverted. The endometrial stripe has a thickness of 5 mm. No focal myometr ial mass is identified. 9 mm echogenic lesion present in the cervix. The right ovary measures 3.1 x 1.6 x 2.7 cm. No significant right ovarian or adnexal mass is seen. The left ovary measures 3.9 x 1.4 x 2.5 cm. No significant left ovarian or adnexal mass is seen. There is small amount of free fluid in the cul de sac. Impression: 9 mm echogenic structure the cervix, possibly calcification or complex nabothian cyst. No other significant findings. Reviewed, dictated and finalized at [facility]. Impression: 9 mm echogenic structure the cervix, possibly calcification or complex nabothia n cyst. No other significant findings.
== END 2025-01-26 12:56 | disposition home or self-care (01) ==
PROVIDERS: PCP Internal Medicine Gastroenterology; Visit Provider Nurse Practitioner Family
DX: R10.2 Pelvic and perineal pain (principal)
CPT/HCPCS: 76830; 76856